=== PATIENT | female | born 1985 | race American Indian/Alaskan Native ===

== ENCOUNTER 2016-02-20 20:01 | Emergency (ER) | payer SELFPAY ==
[2016-02-20 20:07] VITALS: BP 138/88
== END 2016-02-20 21:30 | disposition left against medical advice (07) ==
LOC: ED 20:01
DX: R06.00 Dyspnea, unspecified (principal); K08.89 Other specified disorders of teeth and supporting structures; R22.0 Localized swelling, mass and lump, head; J02.9 Acute pharyngitis, unspecified; Z53.21 Procedure and treatment not carried out due to patient leaving prior to being seen by health care provider

== ENCOUNTER 2016-04-09 14:44 | Emergency (ER) | payer SELFPAY ==
[2016-04-09] MEDS ORDERED: BENADRYL IV ONE (18:01)
[2016-04-09] MEDS ORDERED: REGLAN IV ONE (18:01)
[2016-04-09] MEDS ORDERED: DECADRON IV ONE (18:01)
[2016-04-09] MEDS ORDERED: NACL 0.9% 1000 ML IV ONE (18:03)
--- NOTE | 2016-04-09 18:14 | Emergency Department Report ---
ED Headache HPI - General Chief Complaint: Headache Stated Complaint: HEAD PAIN Time Seen by Provider: 04/09/16 18:01 Source: patient - History of Present Illness Initial Comments: Patient is a 30 year old female who presents to the ED for complaints of severe headache since this morning at 10 30 AM. Relates that she woke up with 10/10 pain and relates had some epistaxis with it. Relates that intensity of pain has reduced. But she has never had lingering headaches. Denies of taking any medications for it. Patient denies any blurred vision, decreased vision, weakness, abnormal gait or dizziness at this time. Denies any other symptoms. Timing/Duration: constant Quality: moderate Head Injury Location: global Recent Head Trauma: no recent headache/trauma, occasional headaches Associated Symptoms: denies symptoms. denies: confusion, fatigue, facial pain, fever/chills, flushing, loss of consciousness, nausea/vomiting, nasal congestion , nasal drainage, seizures, stiff neck, vision changes, weakness Allergies/Adverse Reactions: Allergies No Known Allergies Allergy (Verified 04/03/15 14:11) Home Medications: Ambulatory Orders Acetaminophen/Codeine [Tylenol #3] 1 tab PO Q6H PRN #10 tab 06/27/15 Butalb/Acetamin/Caff 50-325-40 [Fioricet] 1 tab PO Q8HR PRN #20 tablet 04/09/16 ED Review of Systems ROS: Stated complaint: HEAD PAIN Other details as noted in HPI Constitutional: denies: chills, fever Eyes: denies: eye pain, eye discharge, vision change Respiratory: denies: cough, shortness of breath, wheezing Cardiovascular: denies: chest pain, palpitations Skin: denies: rash, lesions Neurological: as per HPI, headache. denies: weakness, numbness, paresthesias, confusion, abnormal gait, vertigo Psychiatric: denies: anxiety, depression ED Past Medical Hx - Past Medical History Previous Medical History?: Yes Hx Hypertension: No Hx Diabetes: No Hx Deep Vein Thrombosis: No Hx Renal Disease: No Hx Sickle Cell Disease: No Hx Seizures: No Hx Asthma: Yes (pt denies taking medication for asthma) Hx HIV: No - Surgical History Past Surgical History?: Yes Additional Surgical History: LEFT KNEE SURGERY - Social History Smoking Status: Never Smoker Substance Use Type: None - Medications Home Medications: Home Medications Medication Instructions Recorded Confirmed Last Taken Type Acetaminophen/Codeine [Tylenol #3] 1 tab PO Q6H PRN #10 tab 06/27/15 Unknown Rx Butalb/Acetamin/Caff 50325-40 1 tab PO Q8HR PRN #20 tablet 04/09/16 Unknown Rx [Fioricet] ED Physical Exam - General Limitations: No Limitations General appearance: alert, in no apparent distress - Head Head exam: Present: atraumatic, normocephalic - Eye Eye exam: Present: normal appearance, PERRL, EOMI - Respiratory Respiratory exam: Present: normal lung sounds bilaterally. Absent: respiratory distress, wheezes - Cardiovascular Cardiovascular Exam: Present: regular rate, normal rhythm. Absent: systolic murmur, diastolic murmur, rubs, gallop - Neurological Exam Neurological exam: Present: alert, oriented X3, CN II-XII intact, normal gait. Absent: motor sensory deficit - Expanded Neurological Exam Expanded Neurological exam: Absent: ataxia, expressive aphasia, tremor Patient oriented to: Present: person, place, time Speech: Present: fluid speech Cranial nerves: EOM's Intact: Normal, Nystagmus: Normal (no nystagmus noted on exam), Facial Sensation: Normal Cerebellar function: Finger to Nose: Normal, Romberg: Normal Motor strength exam: RUE: 5, LUE: 5, RLE: 5, LLE: 5 Best Eye Response (Jorge): (4) open spontaneously Best Motor Response ([place]): (6) obeys commands Best Verbal Response (Jorge): (5) oriented [place] Total: 15 - Psychiatric Psychiatric exam: Present: normal affect, normal mood. Absent: depressed, agitated, anxious, flat affect, suicidal ideation ED Course Vital Signs 04/09/16 04/09/16 15:01 20:47 Temperature 98.2 F 98.0 F Pulse Rate 96 H 73 Respiratory 18 18 Rate Blood Pressure 134/90 Blood Pressure 131/81 [Right] O2 Sat by Pulse 100 99 Oximetry ED Medical Decision Making - Medical Decision Making Patient is resting comfortably. States feeling much better with IV medications. Relates headache is gone completely. CT head negative. Will start patient on Fioricet at this time. - Differential Diagnosis migraine headaches, tension headaches, migraine with aura, cluster headache Critical care attestation.: If time is entered above; I have spent that time in minutes in the direct care of this critically ill patient, excluding procedure time. ED Disposition Clinical Impression: Migraine Qualifiers: Migraine type: unspecified Status migrainosus presence: without status migrainosus Intractability: not intractable Qualified Code(s): G43.909 - Migraine, unspecified, not intractable, without status migrainosus Disposition: DISCHARGED TO HOME OR SELFCARE Is pt being admited?: No Does the pt Need Aspirin: No Condition: Stable Instructions: Ibuprofen (By mouth), Migraine Headache (ED), Acute Headache (ED) , Cluster Headache (ED) Prescriptions: Butalb/Acetamin/Caff 50-325-40 [Fioricet] 1 tab PO Q8HR PRN #20 tablet PRN Reason: Headache Referrals: HEAD,JAVI CASTILLO MD [Primary Care Provider] - 3-5 Days Time of Disposition: 21:28
[2016-04-09 20:48] VITALS: BP 131/81
--- NOTE | 2016-04-12 18:15 | Cat Scan Report ---
FINAL REPORT EXAM: CT HEAD/BRAIN WO CON HISTORY: severe headaches, nose bleed this afternoon TECHNIQUE: CT imaging acquired through the head without intravenous contrast. Transaxial reformations are provided. PRIORS: None. FINDINGS: The ventricles, cisterns and sulci are normal. No intraparenchymal or extra-axial mass, hemorrhage, or mass effect. Boswell and white-matter differentiation is normal. Normal spherical shape of the globes. Paranasal sinuses and mastoid air cells are clear. No skull or facial fracture visualized. IMPRESSION: No acute intracranial abnormality. Consider MRI as warranted.
== END 2016-04-09 21:41 | disposition home or self-care (01) ==
LOC: ED 14:44
DX: G43.909 Migraine, unspecified, not intractable, without status migrainosus (principal); J45.909 Unspecified asthma, uncomplicated
CPT/HCPCS: 70450; 81025; 96361; 96374; 96375; 99284; J1100; J1200; J2765; J7030

== ENCOUNTER 2016-07-06 15:34 | Emergency (ER) | payer SELFPAY ==
--- NOTE | 2016-07-06 21:27 | Emergency Department Report ---
HPI - General Chief Complaint: Pain General Time Seen by Provider: 07/06/16 20:56 - HPI HPI: There is a 30-year-old female presents to ED complaining of starting her menstrual cycle today. She states she is having pain with her menstrual cycle. Patient states cycles couple of days late patient says she took several tests at home that was negative. Patient states she started cycle today but were painful. Patient denies any other symptoms no fever no nausea no vomiting no dizziness no headaches or any other problems. ED Past Medical Hx - Past Medical History Previous Medical History?: Yes Hx Hypertension: No Hx Diabetes: No Hx Deep Vein Thrombosis: No Hx Renal Disease: No Hx Sickle Cell Disease: No Hx Seizures: No Hx Asthma: Yes (pt denies taking medication for asthma) Hx HIV: No - Surgical History Past Surgical History?: Yes Additional Surgical History: LEFT KNEE SURGERY - Social History Smoking Status: Former Smoker Substance Use Type: Alcohol, Non Opiate Pain - Medications Home Medications: Home Medications Medication Instructions Recorded Confirmed Last Taken Type Acetaminophen/Codeine [Tylenol #3] 1 tab PO Q6H PRN #10 tab 06/27/15 Unknown Rx Butalb/Acetamin/Caff 50-325-40 1 tab PO Q8HR PRN #20 tablet 04/09/16 Unknown Rx [Fioricet] Ibuprofen [Motrin 800 MG tab] 800 mg PO Q8HR PRN #30 tablet 07/06/16 Unknown Rx traMADol [Ultram] 50 mg PO Q6HR PRN #20 tablet 07/06/16 Unknown Rx ED Review of Systems ROS: Stated complaint: CRAMPS/BACK/HEAD PAIN Other details as noted in HPI Constitutional: denies: chills, fever Eyes: denies: eye pain, eye discharge, vision change ENT: denies: ear pain, throat pain Respiratory: denies: cough, shortness of breath, wheezing Cardiovascular: denies: chest pain, palpitations Endocrine: no symptoms reported Gastrointestinal: denies: abdominal pain, nausea, diarrhea Genitourinary: denies: urgency, dysuria, frequency, hematuria, discharge, abnormal menses Musculoskeletal: denies: back pain, joint swelling, arthralgia Skin: denies: rash, lesions Neurological: denies: headache, weakness, paresthesias Psychiatric: denies: anxiety, depression Hematological/Lymphatic: denies: easy bleeding, easy bruising Physical Exam - Physical Exam Vital Signs: Vital Signs 07/06/16 16:17 Temperature 98.2 F Pulse Rate 77 Respiratory 16 Rate Blood Pressure 116/75 O2 Sat by Pulse 100 Oximetry Physical Exam: GENERAL: Alert and oriented x3, no apparent distress, Normal Gait, atraumatic. HEAD: Head is normocephalic and a-traumatic. NECK: Supple. Non edematous, No carotid bruits. No lymphadenopathy or thyromegaly. No C-spine tenderness LUNGS: Symetrical with respiration, No wheezing, no rales or crackles, CTAB. HEART: S1, S2 present, regular rate and rhythm without murmur, no rubs, no gallops. ABDOMEN: No organomegaly was noted,Positive bowel sounds, soft, and non- distended. . Nontender to palpation on all Quadrants, NO CVA tenderness. PSYCHIATRIC: Mood is congruent with affect, denies suicidal or homicidal ideations. SKIN: Warm and dry, No lesions, No ulceration or induration present. ED Course Vital Signs 07/06/16 16:17 Temperature 98.2 F Pulse Rate 77 Respiratory 16 Rate Blood Pressure 116/75 O2 Sat by Pulse 100 Oximetry ED Medical Decision Making - Medical Decision Making 30-year-old female presents with dysmenorrhea ED course: Patient did not receive pain medication as she is refused pain medicine in ER because she had taken Motrin earlier today. 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 Patient states she understands instructions given and will comply. Critical care attestation.: If time is entered above; I have spent that time in minutes in the direct care of this critically ill patient, excluding procedure time. ED Disposition Clinical Impression: Menstrual cramps, Dysmenorrhea Disposition: DISCHARGED TO HOME OR SELFCARE Is pt being admited?: No Does the pt Need Aspirin: No Condition: Stable Instructions: Menstruation (ED), Dysmenorrhea (ED) Prescriptions: Ibuprofen [Motrin 800 MG tab] 800 mg PO Q8HR PRN #30 tablet PRN Reason: Pain traMADol [Ultram] 50 mg PO Q6HR PRN #20 tablet PRN Reason: Pain Referrals: JAVI LUO MD [Primary Care Provider] - 3-5 Days SHIRA COVINGTON MD [Referring] - 3-5 Days GRACE BAKER MD [Referring] - 3-5 Days TIMOTEO ANGULO MD [Referring] - 3-5 Days [facility] [Outside] - 3-5 Days Forms: Accompanied Note, Work/School Release Form(ED) Time of Disposition: 21:31
[2016-07-06 22:13] VITALS: BP 117/79
== END 2016-07-06 22:09 | disposition home or self-care (01) ==
LOC: ED 15:34
DX: N94.6 Dysmenorrhea, unspecified (principal); J45.909 Unspecified asthma, uncomplicated; Z87.891 Personal history of nicotine dependence
CPT/HCPCS: 99282

== ENCOUNTER 2016-12-08 16:40 | Emergency (ER) | payer SELFPAY ==
[2016-12-08 18:26] VITALS: BP 133/77
== END 2016-12-08 19:29 | disposition left against medical advice (07) ==
LOC: ED 16:40
DX: O26.891 Other specified pregnancy related conditions, first trimester (principal); M79.1 Myalgia; M79.672 Pain in left foot; Z3A.11 11 weeks gestation of pregnancy; Z53.21 Procedure and treatment not carried out due to patient leaving prior to being seen by health care provider

== ENCOUNTER 2017-03-26 12:08 | Outpatient (CLI) | payer MEDICAID ==
[2017-03-26 12:25] VITALS: BP 119/78
== END 2017-03-26 14:16 | disposition home or self-care (01) ==
LOC: TRG 12:08
PROVIDERS: ATTEND Obstetrics & Gynecology
DX: O47.02 False labor before 37 completed weeks of gestation, second trimester (principal); Z87.891 Personal history of nicotine dependence; Z3A.25 25 weeks gestation of pregnancy
CPT/HCPCS: 59025

== ENCOUNTER 2017-05-17 07:21 | Outpatient (CLI) | payer MEDICAID ==
[2017-05-17] MEDS ORDERED: LACTATED RINGERS 500 ML IV ONE (07:48)
[2017-05-17] MEDS ORDERED: PHENERGAN PO ONE (08:30)
[2017-05-17] MEDS ORDERED: PERCOCET 5/325 PO ONE ×2 (08:30→09:25)
[2017-05-17 08:48] LABS: Hematocrit 36.5 % (30.3-42.9); Hemoglobin 12.3 gm/dl (10.1-14.3); Mean Corpuscular HGB Conc 34 % (30-34); Mean Corpuscular Hemoglobin 29 pg (28-32); Mean Corpuscular Volume 85 fl (79-97); Platelet Count 317 K/mm3 (140-440); Red Blood Count 4.29 M/mm3 (3.65-5.03); Red Cell Distribution Width 13.6 % (13.2-15.2)
[2017-05-17 08:50] LABS: Bilirubin,Urine NEG (Negative); Blood,Urine NEG (Negative); Color,Urine Straw (Yellow); Mucus,Urine FEW /HPF; Protein,Urine <15 mg/dL mg/dL (Negative); Urobilinogen,Urine < 2.0 mg/dL (<2.0); WBC,Urine < 1.0 /HPF (0.0-6.0)
[2017-05-17 08:54] LABS: RBC,Urine < 1.0 /HPF (0.0-6.0)
[2017-05-17 09:45] LABS: Alanine Aminotransferase 36 units/L (7-56); Uric Acid 4.1 mg/dL (3.5-7.6)
[2017-05-18 01:20] VITALS: BP 126/73
== END 2017-05-17 09:41 | disposition home or self-care (01) ==
LOC: TRG 07:21
PROVIDERS: ATTEND Obstetrics & Gynecology
DX: O47.03 False labor before 37 completed weeks of gestation, third trimester (principal); Z3A.33 33 weeks gestation of pregnancy; Z79.899 Other long term (current) drug therapy
CPT/HCPCS: 36415; 59025; 81001; 82565; 82962; 83615; 84450; 84460; 84550; 85027; Q0169

== ENCOUNTER 2017-05-17 21:30 | Observation (INO) | payer MEDICAID ==
[2017-05-17] MEDS ORDERED: LACTATED RINGERS 500 ML IV ONE (21:37)
[2017-05-17 22:00] LABS: Bacteria,Urine 1+ /HPF (Negative); Bilirubin,Urine NEG (Negative); Blood,Urine NEG (Negative); Color,Urine Straw (Yellow); Protein,Urine <15 mg/dL mg/dL (Negative); Urobilinogen,Urine < 2.0 mg/dL (<2.0); WBC,Urine < 1.0 /HPF (0.0-6.0)
[2017-05-17] MEDS ORDERED: DILAUDID IV ONE ×2 (22:26→23:47)
[2017-05-17] MEDS: LACTATED RINGERS 1,000 ML IV SCH (23:35)
[2017-05-18] MEDS ORDERED: BRETHINE SUB-Q ONE (02:02)
[2017-05-18] MEDS: PERCOCET 5/325 PO PRN ×4 (02:44→21:31)
[2017-05-18] MEDS: AMBIEN PO PRN ×2 (02:46→21:34)
[2017-05-18] MEDS: LACTATED RINGERS 1,000 ML IV SCH (02:52)
[2017-05-18] MEDS ORDERED: D50W (25GM) Syringe IV PRN (09:23)
--- NOTE | 2017-05-18 10:00 | History and Physical Report ---
History of Present Illness Date of examination: 05/18/17 Date of admission: 05/18/17 02:20 Chief complaint: headache x 3 days History of present illness: Pt is a 31 year old -[place] female GREG 07/05/17 at 33w1d presents with persistent headache since Tuesday05/16/17. She initially tried Fioricet x 2 doses with minimal relief as well as Percocet and Dilaudid given to the patient during a prior hospitalization yesterday morning. She reports photophobia and denies a h/o migraines. She does report nausea this morning since she has not eaten. She denies contractions, leakage of fluid or vaginal bleeding. She does reports movement. She has had care at [facility] since 7 wks complicated by gestional diabetes on insulin, genital herpes, obesity and a h/o PIH. She is GBS unknown. She has been comanaged by [facility] for her gestational diabetes. 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 Family/Genetic History: diabetes, hypertension Social history: no significant social history, other (H/o 1 child who of SIDS ) - Obstetrical History Expected Date of Delivery: 07/05/17 Actual Gestation: 33 Week(s) 1 Day(s) : 4 Para: 2 Hx # Term Pregnancies: 2 Number of Pregnancies: 0 Spontaneous Abortions: 0 Induced : 1 Number of Living Children: 1 (one child of SIDS) Medications and Allergies Allergies Allergy/AdvReac Type Severity Reaction Status Date / Time No Known Allergies Allergy Verified 04/03/15 14:11 Home Medications Medication Instructions Recorded Confirmed Last Taken Type Butalb/Acetamin/Caff 50-325-40 1 tab PO Q8HR PRN #20 tablet 04/09/16 05/17/17 Rx [Fioricet] Insulin NPH Human Isophane 10 units SUB-Q QPM 05/17/17 05/17/17 05/17/17 History [Humulin N] Insulin NPH Human Isophane 36 units SUB-Q QAMDIAB 05/17/17 05/17/17 05/17/17 History [Humulin N] Insulin Regular, Human [Humulin R] 18 units SUB-Q QAMDIAB 05/17/17 05/17/1705/01 History Insulin Regular, Human [Humulin R] 22 units SUB-Q QPM 05/17/17 05/17/17 History Pnv No.95/Ferrous Fum/Folic AC 1 tab PO QDAY 05/17/17 05/17/17 05/17/17 History [ Vitamins Tablet] Active Meds: Active Medications Acetaminophen/Butalbital/Caffeine (Fioricet) 2 tab PO Q4H PRN PRN Reason: Headache Dextrose (D50w (25gm) Syringe) 50 ml IV PRN PRN PRN Reason: Hypoglycemia Lactated Ringer's (Lactated Ringers) 1,000 mls @ 125 mls/hr IV DIRECT LUIS Last Admin: 05/18/17 02:52 Dose: 125 mls/hr Insulin Human Regular (Humulin R) 0 units SUB-Q Q6HR LUIS; Protocol Oxycodone/Acetaminophen (Percocet 5/325) 2 tab PO Q4H PRN PRN Reason: Pain, Moderate (4-6) Last Admin: 05/18/17 08:26 Dose: 2 tab Zolpidem Tartrate (Ambien) 10 mg PO QHS PRN PRN Reason: Insomnia Last Admin: 05/18/17 02:46 Dose: 10 mg Review of Systems All systems: negative Eyes: photophobia Gastrointestinal: nausea - Vital Signs Vital signs: Vital Signs Temp Resp 98.5 F 20 05/17/17 21:46 05/17/17 21:46 Temp Pulse Resp BP Pulse Ox 98.0 F 92 H 20 115/74 98 05/18/17 08:12 05/18/17 08:20 05/18/17 08:12 05/18/17 08:20 05/18/17 00:32 - Physical Exam Breasts: Positive: deferred Abdomen: Positive: soft (gravid, obese ). Negative: tenderness Uterus: Positive: enlarged (gravid ) Extremities: Positive: normal - Obstetrical FHR: auscultation normal Uterine Contraction Monitor Mode: External Uterine Contraction Pattern: Absent Uterine Tone Measurement Phase: Resting Results All other labs normal. Assessment and Plan A: IUP at 33w1d Debilitating headache minimally responsive to pain medication Gestational Diabetes- insulin dependent Asthma Genital Herpes H/o PIH H/o child who of SIDS P: Admit to antepartum service PIH panel Neurology consult Consider brain imaging per Neuro recs Supportive care
[2017-05-18] MEDS ORDERED: DEEP SEA NS PRN (10:59)
[2017-05-18] MEDS ORDERED: BENADRYL PO PRN (10:59)
[2017-05-18] MEDS ORDERED: COLACE PO PRN (10:59)
[2017-05-18] MEDS ORDERED: SUDAFED PO PRN (10:59)
[2017-05-18] MEDS ORDERED: ZOFRAN IV PRN (10:59)
[2017-05-18] MEDS ORDERED: TYLENOL PO PRN (10:59)
[2017-05-18] MEDS ORDERED: LACTATED RINGERS 1,000 ML IV SCH (11:00)
[2017-05-18] MEDS ORDERED: MAGNESIUM SULFATE 2GM/50ML 2 GM/50 ML BAG IV ONE (12:39)
--- NOTE | 2017-05-18 12:48 | Consultation ---
History of Present Illness Consult date: 05/18/17 Requesting physician: ZEUS GONZALEZ Reason for Consult: headache Chief complaint: global headache History of present illness: This 31-year-old left-handed -[place] female who is at 33 weeks gestation, developed global headaches since 2 nights ago without nausea unless she is hungry. She has had some visual dark spots with the headache but not preceding it. She has no prior history of migraines. She has been using Fioricet given previously from the hospital and was told to take 2 Tuesday night but it didn't help so she came in Tuesday morning and was given promethazine and Percocet and sent home but then returned last night and was given Dilaudid which she says did not help either. She feels pressure in her head worse lying down but also worse pain like a pulling if she sits up. Past History Past Medical History: diabetes (gestational for which she is on insulin) Social history: other (working at an [employer] (formerly [employer] denies: smoking, alcohol abuse (none now, rare prior to ), prescription drug abuse, IV drug use (some marijuana back in September. During .) Family history: hypertension (mother), other (no history of migraines or epilepsy). denies: stroke Medications and Allergies Allergies Allergy/AdvReac Type Severity Reaction Status Date / Time No Known Allergies Allergy Verified 04/03/15 14:11 Home Medications Medication Instructions Recorded Confirmed Last Taken Type Butalb/Acetamin/Caff 50-325-40 1 tab PO Q8HR PRN #20 tablet 04/09/16 05/17/17 Rx [Fioricet] Insulin NPH Human Isophane 10 units SUB-Q QPM 05/17/17 05/17/17 05/17/17 History [Humulin N] Insulin NPH Human Isophane 36 units SUB-Q QAMDIAB 05/17/17 05/17/17 05/17/17 History [Humulin N] Insulin Regular, Human [Humulin R] 18 units SUB-Q QAMDIAB 05/17/17 05/17/1705/01 History Insulin Regular, Human [Humulin R] 22 units SUB-Q QPM 05/17/17 05/17/17 History Pnv No.95/Ferrous Fum/Folic AC 1 tab PO QDAY 05/17/17 05/17/17 05/17/17 History [ Vitamins Tablet] Active Meds: Active Medications Acetaminophen (Tylenol) 650 mg PO Q4H PRN PRN Reason: Pain MILD(1-3)/Fever >100.5/OSPINA Acetaminophen/Butalbital/Caffeine (Fioricet) 2 tab PO Q4H PRN PRN Reason: Headache Dextrose (D50w (25gm) Syringe) 50 ml IV PRN PRN PRN Reason: Hypoglycemia Diphenhydramine HCl (Benadryl) 25 mg PO Q6H PRN PRN Reason: Itching Docusate Sodium (Colace) 100 mg PO Q12H PRN PRN Reason: Constipation Lactated Ringer's (Lactated Ringers) 1,000 mls @ 125 mls/hr IV DIRECT LUIS Last Admin: 05/18/17 02:52 Dose: 125 mls/hr Lactated Ringer's (Lactated Ringers) 1,000 mls @ 125 mls/hr IV DIRECT LUIS Magnesium Sulfate (Magnesium Sulfate 2gm/50ml) 2 gm in 50 mls @ 25 mls/hr IV ONCE ONE Stop: 05/18/17 14:38 Dexamethasone 12 mg/ Sodium (Chloride) 53 mls @ 100 mls/hr IV NOW NR Insulin Human Regular (Humulin R) 0 units SUB-Q Q6HR LUIS; Protocol Multivitamins/Iron/Calcium ( Vitamin) 1 each PO QDAY LUIS Ondansetron HCl (Zofran) 4 mg IV Q6H PRN PRN Reason: Nausea And Vomiting Oxycodone/Acetaminophen (Percocet 5/325) 2 tab PO Q4H PRN PRN Reason: Pain, Moderate (4-6) Last Admin: 05/18/17 08:26 Dose: 2 tab Pseudoephedrine HCl (Sudafed) 30 mg PO Q4H PRN PRN Reason: Nasal Congestion Sodium Chloride (Deep Sea) 2 spray NS Q4H PRN PRN Reason: Congestion Zolpidem Tartrate (Ambien) 10 mg PO QHS PRN PRN Reason: Insomnia Last Admin: 05/18/17 02:46 Dose: 10 mg Review of Systems All systems: negative (headaches only every now and then without nausea. Some orthostatic symptoms at least today. Unaware of any snoring. Since for about 2 hours daily but doesn't doze off other times and never sleepy driving. No memory problems.) Physical Examination - Vital Signs Vital Signs: Vital Signs Temp Resp 98.5 F 20 05/17/17 21:46 05/17/17 21:46 - Physical Exam Narrative exam: General Appearance: well developed but overweight (per estimated BMI) early 30s -[place] female lying in bed, photophobic. HEENT: atraumatic, normocephalic; no bruits, 2+ [place] without soreness or induration or enlargement, sclerae nonicteric. Oropharynx pink and moist. Neck: supple, no bruits. Heart: no murmur or extra sounds. Extremities: no clubbing, cyanosis or edema. 1+ dorsalis pedis pulses bilaterally. Neurologic Exam: Mental Status: Awake, alert, oriented X 3, speech is clear, names pen and tip of pen, and abstracts well. Names President but not Coding Auditor, serial 7's intact, no right-left confusion, gets 3 of 3 objects at 3 minutes, spells WORLD backwards correctly. Cranial Nerves: ha full, no papilledema, SVPs present, PERRLA, EOMs full without nystagmus or diplopia, facial sensation intact to pinprick and light touch, no facial weakness, Trimble is midline, palate rises symmetrically to phonation OR gags are positive, shoulder shrug is 5 X 2, tongue protrudes midline. Cerebellar: finger to nose and heel to tavares are normal. Sensory: intact to light touch, pinprick, and vibrations. Double simultaneous stimulation is intact. Motor Exam Upper Extremities: no drift or pronation, Milo intact. Director Operating Room are 5 X 2, tone is normal. No atrophy or fasciculations are noted visually. Motor Exam Lower Extremities: No leg lag, quadriceps, anterior tibials and gastrocnemius are 5 bilaterally. Milo intact. Tone is normal. No atrophy or fasciculations are noted visually. Reflexes: Palmomental and snout are negative but jaw jerk is slightly positive. Triceps, biceps and brachioradialis are 2 bilaterally. Sarah's is negative bilaterally. Knee jerks are 2+ and ankle jerks are 2 bilaterally without clonus. Toes are downgoing bilaterally to Babinski testing. Results - Laboratory Findings Abnormal Lab Findings: Abnormal Labs 05/18/17 09:47 POC Glucose 169 H Assessment and Plan Impression: 1. Tension headache, new onset 2. Plan: 1. Decadron 12 mg iv X 1 for headache, discussed with Dr. Gonzalez. 2. MgSO4 2 grams iv X 2 for headache, also discussed with Dr. Gonzalez. 3. MRI and MRA of brain noncontrast since this headache is not typical for her. 4. Calf tensing maneuvers for possible orthostasis discussed with patient. 5. Vitamin B2 (riboflavin) 400 mg bid using [employer] or [employer]AP brand (the latter via [place]) to prevent headaches, safe in as I told her. 6. Can also use Mg Citrate 125 mg gelcaps for headache prevention, 2 bid building to tid, reducing dose if loose stools, also safe in . 7. Printed out instructions for B2 and magnesium for her. 45 minutes spent with this patient including discussion with Dr. Gonzalez. Thank you for an interesting consultation on this pleasant early 30s lady.
[2017-05-18] MEDS ORDERED: DECADRON 12 MG in NACL 0.9% 50 ML IV NR (13:00)
[2017-05-18] MEDS ORDERED: DECADRON IV ONE (14:12)
[2017-05-18] MEDS: HumuLIN R SUB-Q SCH ×2 (15:55→20:41)
[2017-05-18 16:25] LABS: Amphetamine Screen,Urine PRESUMPTIVE NEGATIVE; Benzodiazepines Screen,Urine PRESUMPTIVE NEGATIVE; Cannabinoid Screen,Urine PRESUMPTIVE NEGATIVE; Cocaine Screen,Urine PRESUMPTIVE NEGATIVE; Methadone Screen,Urine PRESUMPTIVE NEGATIVE; Opiate Screen,Urine PRESUMPTIVE NEGATIVE
--- NOTE | 2017-05-18 17:15 | Magnetic Resonance Report ---
FINAL REPORT EXAM: MR BRAIN WO CON HISTORY: headache TECHNIQUE: MRI brain without contrast PRIORS: None. FINDINGS: There is normal signal throughout the brain parenchyma. No evidence for brain edema pattern or mass effect. Ventricles and sulci are within normal limits. No evidence for acute intra-axial or extra-axial hemorrhage. The pituitary is prominent size measuring 1 centimeter with a rounded appearance superiorly. No evidence for acute restriction on diffusion-weighted study. Brainstem and posterior fossa structures are unremarkable. A mucous retention cyst or polyp is noted within the inferior aspect of the left maxillary sinus IMPRESSION: Mildly enlarged pituitary gland. If there is clinical concern for pituitary adenoma pituitary protocol MRI could be performed with and without contrast Mucous retention cyst or polyp within the left maxillary sinus Otherwise negative study
--- NOTE | 2017-05-18 17:16 | Magnetic Resonance Report ---
FINAL REPORT EXAM: MR MRA/MRV HEAD WO CON HISTORY: headache MR angiogram head [id number] PRIORS: None. FINDINGS: Normal appearance of the intracranial portion of the carotid arteries. The MCA and LUANA distributions are unremarkable Distal vertebral arteries are intact. The basilar and FRAME FEEDER circulation is within normal limits No evidence for major vascular occlusion or aneurysm IMPRESSION: Normal MRA head
[2017-05-19] MEDS ORDERED: HumuLIN R SUB-Q SCH ×2 (09:00→17:00)
[2017-05-19] MEDS: LACTATED RINGERS 1,000 ML IV SCH (09:12)
[2017-05-19] MEDS: FIORICET PO PRN ×2 (09:25→15:25)
[2017-05-19] MEDS ORDERED: PRENATAL VITAMIN PO SCH (10:00)
[2017-05-19] MEDS: HumuLIN R SUB-Q SCH ×2 (10:43→15:08)
[2017-05-19] MEDS ORDERED: MAGNESIUM SULFATE 2GM/50ML 2 GM/50 ML BAG IV ONE (13:00)
--- NOTE | 2017-05-19 17:15 | Progress Note ---
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 Pt should follow up with Neurology as well. Subjective - Subjective Date of service: 05/19/17 Principal diagnosis: Headache, Gestational Diabetes, Interval history: Late entry. Pt is requesting to go home. She feels that her headache is much improved. She received steroids yesterday which has increased her blood sugars. Patient reports: no new complaints Objective - Vital Signs Vital Signs: Vital Signs - 12hr 05/19/17 05/19/17 05/19/17 05:16 05:17 05:22 Temperature Pulse Rate 89 87 101 H Respiratory Rate Blood Pressure Blood Pressure [Right] O2 Sat by Pulse 94 96 96 Oximetry 05/19/17 05/19/17 05/19/17 05:27 05:32 05:39 Temperature Pulse Rate 74 96 H Respiratory Rate Blood Pressure Blood Pressure [Right] O2 Sat by Pulse 94 95 83 L Oximetry 05/19/17 05/19/17 05/19/17 05:40 05:45 05:50 Temperature Pulse Rate 66 81 79 Respiratory Rate Blood Pressure Blood Pressure [Right] O2 Sat by Pulse 80 L 99 98 Oximetry 05/19/17 05/19/17 05/19/17 05:55 05:57 06:00 Temperature Pulse Rate 82 88 64 Respiratory Rate Blood Pressure Blood Pressure [Right] O2 Sat by Pulse 98 68 L 79 L Oximetry 05/19/17 05/19/17 05/19/17 06:02 06:15 06:20 Temperature Pulse Rate 81 96 H Respiratory Rate Blood Pressure Blood Pressure [Right] O2 Sat by Pulse 78 L 99 98 Oximetry 05/19/17 05/19/17 05/19/17 06:21 06:25 06:30 Temperature Pulse Rate 99 H 90 85 Respiratory Rate Blood Pressure Blood Pressure [Right] O2 Sat by Pulse 91 99 100 Oximetry 05/19/17 05/19/17 05/19/17 06:35 06:40 06:45 Temperature Pulse Rate 94 H 94 H 96 H Respiratory Rate Blood Pressure Blood Pressure [Right] O2 Sat by Pulse 100 98 98 Oximetry 05/19/17 05/19/17 05/19/17 06:47 06:50 06:55 Temperature Pulse Rate 34 L 89 86 Respiratory Rate Blood Pressure Blood Pressure [Right] O2 Sat by Pulse 75 L 98 98 Oximetry 05/19/17 05/19/17 05/19/17 07:00 07:05 07:10 Temperature Pulse Rate 93 H 79 84 Respiratory Rate Blood Pressure Blood Pressure [Right] O2 Sat by Pulse 97 100 99 Oximetry 05/19/17 05/19/17 05/19/17 07:15 07:20 07:25 Temperature Pulse Rate 83 86 86 Respiratory Rate Blood Pressure Blood Pressure [Right] O2 Sat by Pulse 99 99 99 Oximetry 05/19/17 05/19/17 05/19/17 07:30 07:35 07:39 Temperature Pulse Rate 93 H 89 Respiratory Rate Blood Pressure Blood Pressure [Right] O2 Sat by Pulse 100 100 43 L Oximetry 05/19/17 05/19/17 05/19/17 07:40 07:44 07:47 Temperature 99.2 F Pulse Rate 94 H 73 Respiratory 20 Rate Blood Pressure 145/70 Blood Pressure 145/70 [Right] O2 Sat by Pulse 98 99 Oximetry 05/19/17 05/19/17 05/19/17 07:48 10:48 12:23 Temperature Pulse Rate 80 88 86 Respiratory Rate Blood Pressure 98/54 Blood Pressure [Right] O2 Sat by Pulse 99 97 100 Oximetry 05/19/17 05/19/17 15:37 15:38 Temperature Pulse Rate 86 86 Respiratory Rate Blood Pressure 104/59 Blood Pressure [Right] O2 Sat by Pulse 0 L 97 Oximetry - Exam Breasts: deferred Abdomen: Present: soft (gravid, obese ) Uterus: Present: normal (gravid ) FHR: auscultation normal Uterine Contraction Monitor Mode: External Uterine Contraction Pattern: Irregular Uterine Tone Measurement Phase: Resting - Labs Labs: Abnormal Labs 05/18/17 05/18/17 05/18/17 09:47 15:49 18:06 POC Glucose 169 H 232 H Fasting Glucose Magnesium 1.50 L 05/18/17 05/19/17 05/19/17 20:05 05:33 06:07 POC Glucose 286 H 238 H Fasting Glucose 253 H Magnesium 05/19/17 05/19/17 10:36 14:58 POC Glucose 250 H 257 H Fasting Glucose Magnesium Laboratory Results - last 24 hr 05/18/17 05/18/17 05/19/17 18:06 20:05 05:33 POC Glucose 286 H 238 H Fasting Glucose Magnesium 1.50 L 05/19/17 05/19/17 05/19/17 06:07 10:36 14:58 POC Glucose 250 H 257 H Fasting Glucose 253 H Magnesium
--- NOTE | 2017-05-19 17:19 | Discharge Summary ---
Providers - Providers Date of Admission: 05/19/17 08:20 Date of discharge: 05/19/17 Attending physician: ZEUS GONZALEZ 05/18/17 10:01 Consult to Physician [CONS] Routine Comment: Consulting Provider: WILDA MCCORMICK Physician Instructions: Reason For Exam: IUP at 33 wks, severe headache; gestational diabet Primary care physician: ZEUS GONZALEZ Hospitalization Reason for admission: other (Headache ) Hospital course: Pt was admitted for severe headache that did not respond to conservative measures. During her hospitalization, she received a Neurology consult, IV steroids, and two doses of IV Magnesium. She also had an MRI of the brain that was normal. By HD#1 she was feeling much better and asked to be discharged. She will follow up in the office within the next 7 days. Condition at discharge: Stable Disposition: - TO HOME OR SELFCARE - Discharge Diagnoses (1) Headache Status: Acute Qualifiers: Headache type: unspecified Headache chronicity pattern: unspecified pattern (2) Status: Acute (3) Gestational diabetes Status: Acute (4) Obesity Status: Acute (5) Obesity (BMI 30-39.9) Status: Acute Plan - Discharge Medications Prescriptions: Butalb/Acetamin/Caff 50-325-40 [Fioricet] 1 tab PO Q6HR PRN #30 tab PRN Reason: Headache Magnesium Citrate 200 mg PO BID #120 tablet oxyCODONE /ACETAMINOPHEN [Percocet 5/325] 1 tab PO Q6HR PRN #10 tablet PRN Reason: Pain - Provider Discharge Summary Activity: routine Diet: routine Instructions: routine Additional instructions: [] Smoking cessation referral if applicable(refer to patient education folder for contact #) [] Refer to [facility] Booklet Call your doctor immediately for: * Fever > 100.5 * Heavy vaginal bleeding ( >1 pad per hour) * Severe persistent headache * Shortness of breath * Reddened, hot, painful area to leg or breast * Drainage or odor from incision. * Keep incision clean and dry at all times and follow doctor's instructions regarding bathing/showering SCHEDULE A FOLLOW UP WITH THE HIGH RISK DOCTOR WITHIN THE NEXT 7 DAYS. * - Follow up plan Follow up: ZEUS GONZALEZ MD [Primary Care Provider] - 7 Days BETITO CADET MD [Staff Physician] - 7 Days
[2017-05-19 19:15] VITALS: BP 107/66
== END 2017-05-19 20:10 | disposition home or self-care (01) ==
LOC: TRG 21:30 → LD 05-18 02:20 → INTOOBSV 05-19 08:20 → OBSVTOIN 05-19 08:20
PROVIDERS: ADMIT Obstetrics & Gynecology; ATTEND Obstetrics & Gynecology
DX: O99.353 Diseases of the nervous system complicating pregnancy, third trimester (principal); G44.209 Tension-type headache, unspecified, not intractable; G43.009 Migraine without aura, not intractable, without status migrainosus; O99.513 Diseases of the respiratory system complicating pregnancy, third trimester; J45.909 Unspecified asthma, uncomplicated; O98.313 Other infections with a predominantly sexual mode of transmission complicating pregnancy, third trimester; A60.00 Herpesviral infection of urogenital system, unspecified; O24.414 Gestational diabetes mellitus in pregnancy, insulin controlled; O99.213 Obesity complicating pregnancy, third trimester; E66.9 Obesity, unspecified; Z68.34 Body mass index [BMI] 34.0-34.9, adult; Z3A.33 33 weeks gestation of pregnancy
CPT/HCPCS: 36415; 70544; 70551; 80307; 81001; 82947; 82962; 83735; 96361; 96365; 96366; 96367; 96372; 96375; 96376; G0378; J1100; J1170; J2930; J3105; J3475; J7120; J1815

== ENCOUNTER 2017-06-07 22:33 | Outpatient (CLI) | payer MEDICAID ==
[2017-06-08] MEDS ORDERED: VISTARIL PO ONE (00:43)
--- NOTE | 2017-06-08 01:48 | Ultrasound Report ---
FINAL REPORT EXAM: US OB BPP WO NON-STRESS HISTORY: NON REASSURING HEART TONES TECHNIQUE: A limited OB sonogram was obtained for evaluation of the biophysical profile. FINDINGS: For breathing movements, a score of 2 out of 2 was obtained. For movements, a score of 2 out of 2 was obtained. For posture in tone, a score of 2 out of 2 was obtained. For qualitative amniotic fluid volume, a score of 2 out of 2 was obtained. The total score for the biophysical profile is 8 out of 8. The heart rate is 127 BPM. IMPRESSION: Biophysical profile score of 8 out of 8. The heart rate is 127 BPM.
== END 2017-06-08 01:09 | disposition home or self-care (01) ==
LOC: TRG 22:33 → LD 22:34 → TRG 22:41
PROVIDERS: ATTEND Obstetrics & Gynecology
DX: O47.03 False labor before 37 completed weeks of gestation, third trimester (principal); Z3A.36 36 weeks gestation of pregnancy
CPT/HCPCS: 59025; 76819; Q0177

== ENCOUNTER 2017-06-17 05:23 | Outpatient (CLI) | payer MEDICAID ==
[2017-06-17 05:41] VITALS: BP 138/88
[2017-06-17] MEDS ORDERED: LACTATED RINGERS 1,000 ML IV SCH (06:00)
[2017-06-17] MEDS ORDERED: ZOFRAN IV ONE (06:15)
[2017-06-17 06:35] LABS: Bilirubin,Urine NEG (Negative); Blood,Urine NEG (Negative); Color,Urine Straw (Yellow); Protein,Urine <15 mg/dL mg/dL (Negative); Urobilinogen,Urine < 2.0 mg/dL (<2.0); WBC,Urine < 1.0 /HPF (0.0-6.0)
[2017-06-17] MEDS ORDERED: VISTARIL PO NR (08:45)
== END 2017-06-17 09:39 | disposition home or self-care (01) ==
LOC: TRG 05:23
PROVIDERS: ATTEND Obstetrics & Gynecology
DX: O47.1 False labor at or after 37 completed weeks of gestation (principal); Z79.899 Other long term (current) drug therapy; Z3A.37 37 weeks gestation of pregnancy
CPT/HCPCS: 59025; 81001; 82962; 96360; J2405; Q0177

== ENCOUNTER 2017-06-20 22:28 | Inpatient (IN) | payer MEDICAID ==
[2017-06-20] MEDS ORDERED: NARCAN 0.4 MG/1 ML IV PRN (23:31)
[2017-06-20] MEDS ORDERED: MINERAL OIL PO PRN (23:31)
[2017-06-20] MEDS ORDERED: BRETHINE IVP PRN (23:31)
[2017-06-20] MEDS ORDERED: SUBLIMAZE IV PRN (23:31)
[2017-06-20] MEDS ORDERED: ePHEDrine SULFATE IV PRN (23:31)
[2017-06-20] MEDS ORDERED: BRETHINE SUB-Q PRN (23:31)
[2017-06-20] MEDS ORDERED: STADOL IV PRN (23:31)
[2017-06-20] MEDS ORDERED: XYLOCAINE 2% INFILTRATI ONE (23:31)
[2017-06-20] MEDS ORDERED: ZOFRAN IV PRN (23:31)
[2017-06-20] MEDS ORDERED: PITOCin/NS 20 UNIT/1000ML DRIP 20 UNITS/1,000 ML BAG IV SCH (23:45)
[2017-06-21] MEDS ORDERED: PITOCin/NS 30 UNIT/500ML 30 UNITS/500 ML BAG IV SCH ×2 (01:00→10:00)
[2017-06-21 02:07] LABS: Hematocrit 38.6 % (30.3-42.9); Hemoglobin 13.1 gm/dl (10.1-14.3); Mean Corpuscular HGB Conc 34 % (30-34); Mean Corpuscular Hemoglobin 28 pg (28-32); Mean Corpuscular Volume 84 fl (79-97); Platelet Count 281 K/mm3 (140-440); Red Blood Count 4.62 M/mm3 (3.65-5.03); Red Cell Distribution Width 14.5 % (13.2-15.2)
[2017-06-21] MEDS ORDERED: CERVIDIL VG ONE (02:38)
[2017-06-21] MEDS: LACTATED RINGERS 1,000 ML IV SCH ×3 (02:40→10:36)
--- NOTE | 2017-06-21 02:53 | History and Physical Report ---
History of Present Illness Date of examination: 06/21/17 Date of admission: 06/20/17 23:48 Chief complaint: contractions, decreased movement History of present illness: Pt is a 31 year old -[place]ron[place] female GREG 07/05/17 at 38w0d who presents with complaint of contractions and loss of her mucus plug. She also reports decreased movement over the last few hours. Of note, the patient was scheduled for induction at 0830am for IUGR and Gestational Diabetes. She denies vaginal bleeding or leakage of fluid. She has had care at [facility] since 7 wks complicated by gestational diabetes A2 on insulin, IUGR, genital herpes, no care from 20-34 weeks, h/o PIH and h/o SIDS of one of her children. She is GBS negative. Past History Past Medical History: asthma, migraines Past Surgical History: other (knee surgery ) [employer] History: gonorrhea (remote from this ), herpes Family/Genetic History: heart disease, hypertension Social history: no significant social history - Obstetrical History Expected Date of Delivery: 07/05/17 Actual Gestation: 38 Week(s) 0 Day(s) : 4 Para: 2 Hx # Term Pregnancies: 2 Number of Pregnancies: 0 Spontaneous Abortions: 0 Induced : 1 Number of Living Children: 1 Medications and Allergies Allergies Allergy/AdvReac Type Severity Reaction Status Date / Time No Known Allergies Allergy Verified 04/03/15 14:11 Home Medications Medication Instructions Recorded Confirmed Last Taken Type Insulin NPH Human Isophane 10 units SUB-Q QPM 05/17/17 06/21/17 06/16/17 History [Humulin N] Insulin NPH Human Isophane 42 units SUB-Q QAMDIAB 05/17/17 06/21/17 06/16/17 History [Humulin N] Insulin Regular, Human [Humulin R] 16 units SUB-Q QAMDIAB 05/17/17 06/21/1705/01 History Insulin Regular, Human [Humulin R] 26 units SUB-Q QPM 05/17/17 06/21/17 History Pnv No.95/Ferrous Fum/Folic AC 1 tab PO QDAY 05/17/17 06/21/17 06/16/17 History [ Vitamins Tablet] Magnesium Citrate 200 mg PO BID #120 tablet 05/19/17 06/21/17 06/16/17 Rx Active Meds: Active Medications Butorphanol Tartrate (Stadol) 2 mg IV Q2H PRN PRN Reason: Pain , Severe (7-10) Dinoprostone (Cervidil) 10 mg VG ONCE ONE Stop: 06/21/17 02:39 Ephedrine Sulfate (Ephedrine Sulfate) 10 mg IV Q2M PRN PRN Reason: Hypotension Fentanyl (Sublimaze) 100 mcg IV Q2H PRN PRN Reason: Labor Pain Lactated Ringer's (Lactated Ringers) 1,000 mls @ 125 mls/hr IV DIRECT LUIS Last Admin: 06/21/17 02:40 Dose: 125 mls/hr Oxytocin/Sodium Chloride (Pitocin/Ns 20 Unit/1000ml Drip) 20 units in 1,000 mls @ 125 mls/hr IV DIRECT LUIS Oxytocin/Sodium Chloride (Pitocin/Ns 30 Unit/500ml) 30 units in 500 mls @ 4 mls /hr IV TITR LUIS; Protocol Mineral Oil (Mineral Oil) 30 ml PO QHS PRN PRN Reason: Constipation Naloxone HCl (Narcan 0.4 Mg/1 Ml) 0.1 mg IV Q2MIN PRN PRN Reason: Res Rate </= 8 or 02 SAT < 92% Ondansetron HCl (Zofran) 4 mg IV Q8H PRN PRN Reason: Nausea And Vomiting Terbutaline Sulfate (Brethine) 0.25 mg SUB-Q ONCE PRN PRN Reason: Hyperstimulation/Hypertonicity Terbutaline Sulfate (Brethine) 0.25 mg IVP ONCE PRN PRN Reason: Hyperstimulation/Hypertonicity Review of Systems All systems: negative - Vital Signs Vital signs: Vital Signs Pulse Pulse Ox 88 99 06/20/17 23:36 06/20/17 23:36 Temp Pulse Resp BP Pulse Ox 97.2 F L 100 H 18 120/83 89 06/21/17 02:27 06/21/17 02:50 06/21/17 02:27 06/21/17 02:37 06/21/17 02:50 - Physical Exam Cardiovascular: Regular rate Lungs: Positive: Clear to auscultation Abdomen: Positive: soft (gravid ) Genitourinary (Female): Positive: normal external genitalia Uterus: Positive: enlarged (gravid ) Extremities: Positive: edema (trace ) - Obstetrical FHR: auscultation normal Uterine Contraction Monitor Mode: External Cervical Dilatation: 1.5 Cervical Effacement Percentage: 40 station: -3 Uterine Contraction Pattern: Irregular Uterine Tone Measurement Phase: Resting Uterine Contraction Intensity: Mild Results Result Diagrams: 06/21/17 01:55 Abnormal lab results 06/21/17 Range/Units 02:31 POC Glucose 61 L (70-105) All other labs normal. Assessment and Plan A: IUP at 38w0d IUGR GDM A2 -insulin Genital Herpes- no lesion or prodrome GBS negative H/o SIDS of one of her children Unfavorable cervix P: Admit to labor and delivery. Cervidil Accuchek q 4 hrs with sliding scale to cover Closely monitor maternal and status
[2017-06-21] MEDS ORDERED: D50W (25GM) Syringe IV PRN (02:57)
[2017-06-21] MEDS ORDERED: HumuLIN R SUB-Q SCH (03:00)
--- NOTE | 2017-06-21 07:56 | Progress Note ---
Assessment and Plan A: IUP at 37 weeks Induction day 1 for IUGR A2 diabetic Latent Labor P: Cervidil(placed @ 0300) Removed, AROM-clear Active Alexis't Pitocin Subjective - Subjective Date of service: 06/21/17 Patient reports: new complaints, movement normal, no loss of fluid, no vaginal bleeding, no contractions Objective - Vital Signs Vital Signs: Vital Signs - 12hr 06/20/17 06/20/17 06/20/17 23:36 23:41 23:42 Temperature 97.8 F Pulse Rate 88 91 H 88 Respiratory 18 Rate Blood Pressure Blood Pressure 126/84 [Left] O2 Sat by Pulse 99 98 Oximetry 06/20/17 06/20/17 06/21/17 23:46 23:51 00:26 Temperature Pulse Rate 89 96 H 101 H Respiratory Rate Blood Pressure Blood Pressure [Left] O2 Sat by Pulse 99 99 99 Oximetry 06/21/17 06/21/17 06/21/17 00:31 00:36 00:41 Temperature Pulse Rate 98 H 89 92 H Respiratory Rate Blood Pressure Blood Pressure [Left] O2 Sat by Pulse 98 97 98 Oximetry 06/21/17 06/21/17 06/21/17 00:46 00:51 00:56 Temperature Pulse Rate 95 H 87 89 Respiratory Rate Blood Pressure Blood Pressure [Left] O2 Sat by Pulse 98 98 96 Oximetry 06/21/17 06/21/17 06/21/17 01:01 01:06 01:11 Temperature Pulse Rate 95 H 96 H 97 H Respiratory Rate Blood Pressure Blood Pressure [Left] O2 Sat by Pulse 98 99 98 Oximetry 06/21/17 06/21/17 06/21/17 01:16 01:21 01:26 Temperature Pulse Rate 83 89 101 H Respiratory Rate Blood Pressure Blood Pressure [Left] O2 Sat by Pulse 100 99 100 Oximetry 06/21/17 06/21/17 06/21/17 01:31 01:36 01:41 Temperature Pulse Rate 88 103 H 95 H Respiratory Rate Blood Pressure Blood Pressure [Left] O2 Sat by Pulse 99 99 99 Oximetry 06/21/17 06/21/17 06/21/17 01:46 01:51 01:56 Temperature Pulse Rate 101 H 103 H 101 H Respiratory Rate Blood Pressure Blood Pressure [Left] O2 Sat by Pulse 100 100 91 Oximetry 06/21/17 06/21/17 06/21/17 01:57 02:01 02:02 Temperature Pulse Rate 101 H 100 H 95 H Respiratory Rate Blood Pressure Blood Pressure [Left] O2 Sat by Pulse 91 97 94 Oximetry 06/21/17 06/21/17 06/21/17 02:06 02:09 02:11 Temperature Pulse Rate 94 H 99 H 94 H Respiratory Rate Blood Pressure Blood Pressure [Left] O2 Sat by Pulse 98 92 96 Oximetry 06/21/17 06/21/17 06/21/17 02:27 02:37 02:42 Temperature 97.2 F L Pulse Rate 100 H 94 H Respiratory 18 Rate Blood Pressure 120/83 Blood Pressure [Left] O2 Sat by Pulse 99 96 Oximetry 06/21/17 06/21/17 06/21/17 02:47 02:50 02:52 Temperature Pulse Rate 103 H 100 H 98 H Respiratory Rate Blood Pressure Blood Pressure [Left] O2 Sat by Pulse 97 89 98 Oximetry 06/21/17 06/21/17 06/21/17 02:57 03:02 03:07 Temperature Pulse Rate 90 101 H 94 H Respiratory Rate Blood Pressure Blood Pressure [Left] O2 Sat by Pulse 99 99 100 Oximetry 06/21/17 06/21/17 06/21/17 03:12 03:17 03:22 Temperature Pulse Rate 95 H 83 84 Respiratory Rate Blood Pressure Blood Pressure [Left] O2 Sat by Pulse 100 100 100 Oximetry 06/21/17 06/21/17 06/21/17 03:27 03:32 03:37 Temperature Pulse Rate 88 87 83 Respiratory Rate Blood Pressure Blood Pressure [Left] O2 Sat by Pulse 100 100 100 Oximetry 06/21/17 06/21/17 06/21/17 03:42 03:47 03:52 Temperature Pulse Rate 92 H 89 89 Respiratory Rate Blood Pressure Blood Pressure [Left] O2 Sat by Pulse 100 100 100 Oximetry 06/21/17 06/21/17 06/21/17 03:57 04:02 04:07 Temperature Pulse Rate 92 H 93 H 88 Respiratory Rate Blood Pressure Blood Pressure [Left] O2 Sat by Pulse 100 100 97 Oximetry 06/21/17 06/21/17 06/21/17 04:12 04:17 04:22 Temperature Pulse Rate 89 102 H 88 Respiratory Rate Blood Pressure Blood Pressure [Left] O2 Sat by Pulse 98 99 98 Oximetry 06/21/17 06/21/1706/21/18 04:27 04:32 04:37 Temperature Pulse Rate 90 85 89 Respiratory Rate Blood Pressure Blood Pressure [Left] O2 Sat by Pulse 99 98 98 Oximetry 06/21/17 06/21/17 06/21/17 04:42 04:47 04:52 Temperature Pulse Rate 86 88 86 Respiratory Rate Blood Pressure Blood Pressure [Left] O2 Sat by Pulse 98 98 98 Oximetry 06/21/17 06/21/17 06/21/17 04:57 05:02 05:07 Temperature Pulse Rate 87 90 95 H Respiratory Rate Blood Pressure Blood Pressure [Left] O2 Sat by Pulse 99 99 97 Oximetry 06/21/17 06/21/17 06/21/17 05:12 05:17 05:22 Temperature Pulse Rate 80 84 80 Respiratory Rate Blood Pressure Blood Pressure [Left] O2 Sat by Pulse 97 98 99 Oximetry 06/21/17 06/21/17 06/21/17 05:27 05:32 05:37 Temperature Pulse Rate 85 88 99 H Respiratory Rate Blood Pressure Blood Pressure [Left] O2 Sat by Pulse 98 98 98 Oximetry 06/21/17 06/21/17 06/21/17 05:42 05:47 05:51 Temperature Pulse Rate 106 H 95 H 104 H Respiratory Rate Blood Pressure Blood Pressure [Left] O2 Sat by Pulse 100 100 70 L Oximetry 06/21/17 06/21/17 06/21/17 05:52 06:01 06:02 Temperature Pulse Rate 92 H 96 H Respiratory Rate Blood Pressure Blood Pressure [Left] O2 Sat by Pulse 100 93 94 Oximetry 06/21/17 06/21/17 06/21/17 06:06 06:11 06:16 Temperature Pulse Rate 92 H 86 82 Respiratory Rate Blood Pressure Blood Pressure [Left] O2 Sat by Pulse 100 100 100 Oximetry 06/21/17 06/21/17 06/21/17 06:21 06:26 06:31 Temperature 96.3 F L Pulse Rate 78 81 88 Respiratory 18 Rate Blood Pressure Blood Pressure 133/89 [Left] O2 Sat by Pulse 100 100 94 Oximetry 06/21/17 06/21/17 06/21/17 06:33 06:36 06:41 Temperature Pulse Rate 77 81 82 Respiratory Rate Blood Pressure 133/89 Blood Pressure [Left] O2 Sat by Pulse 100 100 Oximetry 06/21/17 06/21/1718 06:46 06:51 06:56 Temperature Pulse Rate 92 H 84 94 H Respiratory Rate Blood Pressure Blood Pressure [Left] O2 Sat by Pulse 100 100 99 Oximetry 06/21/17 06/21/17 06/21/17 07:01 07:06 07:11 Temperature Pulse Rate 85 86 90 Respiratory Rate Blood Pressure Blood Pressure [Left] O2 Sat by Pulse 99 99 98 Oximetry 06/21/17 06/21/17 06/21/17 07:16 07:21 07:26 Temperature Pulse Rate 91 H 88 82 Respiratory Rate Blood Pressure Blood Pressure [Left] O2 Sat by Pulse 100 99 100 Oximetry 06/21/17 06/21/17 06/21/17 07:28 07:33 07:34 Temperature Pulse Rate 87 73 Respiratory Rate Blood Pressure Blood Pressure [Left] O2 Sat by Pulse 84 99 90 Oximetry 06/21/17 06/21/17 06/21/17 07:38 07:43 07:50 Temperature Pulse Rate 86 91 H 90 Respiratory Rate Blood Pressure Blood Pressure [Left] O2 Sat by Pulse 100 99 99 Oximetry 06/21/17 07:55 Temperature Pulse Rate 85 Respiratory Rate Blood Pressure 133/94 Blood Pressure [Left] O2 Sat by Pulse 98 Oximetry - Exam Breasts: deferred Abdomen: Present: normal appearance Uterus: Present: normal FHR: category 1 Uterine Contraction Monitor Mode: External Cervical Dilatation: 3 Cervical Effacement Percentage: 80 station: -2 Uterine Contraction Pattern: Regular Uterine Tone Measurement Phase: Resting Uterine Contraction Intensity: Mild - Labs Labs: Abnormal Labs 06/21/17 06/21/17 02:31 05:56 POC Glucose 61 L 56 L Laboratory Results - last 24 hr 06/21/17 06/21/17 06/21/17 01:55 01:55 02:31 WBC 9.0 RBC 4.62 Hgb 13.1 Hct 38.6 MCV 84 MCH 28 MCHC 34 RDW 14.5 Plt Count 281 POC Glucose 61 L Blood Type O POSITIVE Antibody Screen Negative 06/21/17 05:56 WBC RBC Hgb Hct MCV MCH MCHC RDW Plt Count POC Glucose 56 L Blood Type Antibody Screen
[2017-06-21] MEDS ORDERED: NARCAN 2 MG/2 ML IV PRN (11:17)
[2017-06-21] MEDS ORDERED: ePHEDrine SULFATE IV PRN (11:17)
--- NOTE | 2017-06-21 11:17 | Anesthesia Consultation ---
Anesthesia Consult and Med Hx Date of service: 06/21/17 - Airway Anesthetic Teeth Evaluation: Poor ROM Head & Neck: Adequate Mental/Hyoid Distance: Adequate Mallampati Class: Class II Intubation Access Assessment: Probably Good - Pre-Operative Health Status ASA Pre-Surgery Classification: ASA2 Proposed Anesthetic Plan: Epidural, Spinal - Pulmonary Hx Asthma: Yes (aubulerol inhaler prn (last attack couple years ago)) COPD: No Hx Pneumonia: No - Cardiovascular System Hx Hypertension: No - Central Nervous System Hx Seizures: No Hx Psychiatric Problems: No - Endocrine Hx Renal Disease: No Hx End Stage Renal Disease: No Hx Hypothyroidism: No Hx Hyperthyroidism: No - Hematic Hx Anemia: No Hx Sickle Cell Disease: No - Other Systems Hx Alcohol Use: Yes (occasional) Hx Obesity: Yes (BMI 37.5)
[2017-06-21] MEDS ORDERED: fentaNYL-BUPIV 2 MCG/ML-0.125% 200 MCG/100 ML BAG EPIDURAL SCH (12:00)
[2017-06-21] MEDS ORDERED: LANSINOH TP PRN (13:38)
[2017-06-21] MEDS ORDERED: MILK OF MAGNESIA PO PRN (13:38)
[2017-06-21] MEDS ORDERED: PHENERGAN PO PRN (13:38)
[2017-06-21] MEDS ORDERED: TUCKS PAD TP PRN (13:38)
[2017-06-21] MEDS ORDERED: TYLENOL PO PRN (13:38)
[2017-06-21] MEDS ORDERED: BENADRYL PO PRN (13:38)
[2017-06-21] MEDS ORDERED: DULCOLAX PR PRN (13:38)
[2017-06-21] MEDS ORDERED: PHENERGAN PR PRN (13:38)
--- NOTE | 2017-06-21 13:38 | Procedure Note ---
OB Delivery Note - Delivery Date of Delivery: 06/21/17 (male @ 1319) Surgeon: VIKY GIBSON Estimated blood loss: <100cc - Vaginal Delivery presentation: vertex Delivery position: OA Intrapartum events: none Delivery induction: cervidil Delivery augmentation: rupture of membranes, pitocin Delivery monitor: external FHT, external uterine Route of delivery: Delivery placenta: spontaneous Delivery cord: nuchal cord (Loose NC x 1 easily reduced) Delivery laceration: none Anesthesia: none, epidural - A at 1 minute: 8 at 5 minutes: 9 Gender: Male ( viabe male, NICu present for IUGR. Stimulate to cry, lusty cry. Placed skin to skin. Cord blood collected. spont, cohen placenta, Pitocin infusing, Scant lochia. No lacerations. Mom and baby stable.)
[2017-06-21] MEDS ORDERED: SODIUM CHLORIDE FLUSH SYRINGE 10 ML IV NR (14:00)
[2017-06-21] MEDS: MOTRIN PO SCH ×2 (15:26→21:22)
[2017-06-22] MEDS: NORCO 5/325 PO PRN ×2 (00:49→10:23)
[2017-06-22 03:37] LABS: Hematocrit 35.6 % (30.3-42.9)
[2017-06-22] MEDS: MOTRIN PO SCH ×4 (05:49→20:00)
[2017-06-22] MEDS ORDERED: BOOSTRIX IM ONE (06:00)
--- NOTE | 2017-06-22 08:55 | Progress Note ---
Assessment and Plan A: PPD#1 s/p at term complicated by Gestational DM and IUGR P: Routine care. Subjective - Subjective Date of service: 06/22/17 Principal diagnosis: s/p at term, IUGR, Gestational DM Interval history: Pt doing well today. Anxious about the baby's well being Patient reports: appetite normal, voiding normally, ambulating normally Objective - Vital Signs Latest vital signs: Vital Signs Temp Pulse Resp BP BP Pulse Ox 06/22/17 00:49 20 06/22/17 00:00 98.2 F 95 H 18 140/75 06/21/17 20:30 98.2 F 91 H 18 132/84 06/21/17 15:41 78 134/74 06/21/17 15:26 83 127/77 06/21/17 15:13 98.6 F 16 06/21/17 15:11 82 126/73 06/21/17 14:56 84 135/95 06/21/17 14:41 85 121/74 06/21/17 14:26 75 126/76 06/21/17 14:11 84 133/74 06/21/17 14:00 97.8 F 16 06/21/17 13:56 77 130/94 06/21/17 13:41 87 127/83 06/21/17 13:26 93 H 124/85 06/21/17 13:24 134 H 16 100 06/21/17 13:19 85 100 06/21/17 13:14 90 100 06/21/17 13:11 100 H 139/86 06/21/17 13:09 76 100 06/21/17 13:04 78 100 06/21/17 12:59 77 100 06/21/17 12:56 95 H 136/70 06/21/17 12:53 89 100 06/21/17 12:48 87 98 06/21/17 12:43 79 99 06/21/17 12:41 75 134/71 06/21/17 12:38 80 99 06/21/17 12:33 96 H 100 06/21/17 12:28 92 H 99 06/21/17 12:26 84 128/86 06/21/17 12:23 76 100 06/21/17 12:18 82 100 06/21/17 12:13 85 99 05/08/18 12:11 80 118/86 05 12:08 81 100 06/21/17 12:03 78 99 06/21/17 11:58 84 100 05 11:56 80 123/75 92 06/21/17 11:53 84 137/90 100 06/21/17 11:52 75 135/82 06/21/17 11:51 97.3 F L 18 06/21/17 11:49 86 135/90 06/21/17 11:48 83 100 06/21/17 11:47 80 132/85 06/21/17 11:45 76 132/84 06/21/17 11:43 85 129/82 06/21/17 11:42 91 H 100 06/21/17 11:41 74 132/82 06/21/17 11:39 86 136/87 06/21/17 11:37 84 128/82 100 06/21/17 11:35 75 130/82 06/21/17 11:33 75 131/82 06/21/17 11:32 72 100 06/21/17 11:31 79 130/82 06/21/17 11:29 81 127/79 06/21/17 11:28 74 137/80 06/21/17 11:26 84 99 06/21/17 11:25 77 120/87 06/21/17 11:23 74 129/92 06/21/17 11:21 72 141/92 98 06/21/17 11:20 81 130/91 06/21/17 11:18 83 148/97 06/21/17 11:17 66 L 06/21/17 11:16 91 H 141/85 84 06/21/17 11:13 88 146/83 06/21/17 11:11 94 H 149/86 95 06/21/17 11:10 94 H 91 06/21/17 11:09 97 H 146/82 06/21/17 11:07 86 146/80 06/21/17 11:06 99 H 144/77 100 06/21/17 11:03 86 132/74 06/21/17 11:01 92 H 98 06/21/17 10:56 85 100 06/21/17 10:51 85 100 06/21/17 10:41 80 100 06/21/17 10:36 87 100 06/21/17 10:31 82 99 06/21/17 10:26 88 100 06/21/17 10:21 90 100 06/21/17 10:18 77 91 06/21/17 10:16 80 100 06/21/17 10:11 83 100 06/21/17 10:06 86 100 06/21/17 10:01 67 99 06/21/17 09:56 91 H 97 06/21/17 09:23 74 L 06/21/17 09:22 84 100 06/21/17 09:17 72 100 06/21/17 09:12 73 99 06/21/17 09:07 83 99 06/21/17 09:02 88 100 Intake and Output 06/21/17 06/22/17 06/22/17 22:59 06:59 14:59 Intake Total 240 240 Output Total 700 Balance -460 240 Intake: Oral 240 240 Output: Urine 700 Void 700 Other: Total, Intake Amount 240 240 Total, Output Amount 700 # Voids Void 1 - Exam Breasts: Present: deferred Cardiovascular: Present: Regular rate Lungs: Present: Clear to auscultation Abdomen: Present: soft (obese) Uterus: Present: fundal height below umbilicus Extremities: Present: normal - Labs Labs: Abnormal lab results 06/21/17 Range/Units 17:21 POC Glucose 186 H (70-105)
[2017-06-23] MEDS: NORCO 5/325 PO PRN ×2 (03:24→22:18)
[2017-06-23] MEDS: MOTRIN PO SCH ×2 (03:24→22:17)
--- NOTE | 2017-06-23 17:53 | Discharge Summary ---
Providers - Providers Date of Admission: 06/20/17 23:48 Date of discharge: 06/23/17 Attending physician: ZEUS GONZALEZ Primary care physician: ZEUS GONZALEZ Hospitalization Reason for admission: active labor, IUP at term Delivery: Episiotomy: none Laceration: none Other procedures: none complications: none Discharge diagnosis: IUP at term delivered baby: male Condition at discharge: Good Disposition: DC-01 TO HOME OR SELFCARE Plan - Discharge Medications Prescriptions: Ibuprofen [Motrin 600 MG tab] 600 mg PO Q6H PRN #30 tablet PRN Reason: Pain - Provider Discharge Summary Activity: routine, no sex for 6 weeks, no heavy lifting 4 weeks, no strenuous exercise Diet: routine Instructions: routine Additional instructions: [] Smoking cessation referral if applicable(refer to patient education folder for contact #) [] Refer to [facility]'s [facility] Booklet Call your doctor immediately for: * Fever > 100.5 * Heavy vaginal bleeding ( >1 pad per hour) * Severe persistent headache * Shortness of breath * Reddened, hot, painful area to leg or breast * Drainage or odor from incision. * Keep incision clean and dry at all times and follow doctor's instructions regarding bathing/showering - Follow up plan Follow up: ZEUS GONZALEZ MD [Primary Care Provider] - (RTO 4 weeks, Call office to schedule infant circumcision)
[2017-06-23 22:21] VITALS: BP 120/75
== END 2017-06-23 22:20 | disposition home or self-care (01) | DRG 774 ==
LOC: TRG 22:28 → LD 23:48 → OB 06-21 17:05
PROVIDERS: ADMIT Obstetrics & Gynecology; ATTEND Obstetrics & Gynecology
PROC: 10E0XZZ Delivery of Products of Conception, External Approach (ICD-10-PCS; principal; 2017-06-21)
PROC: 00HU33Z Insertion of Infusion Device into Spinal Canal, Percutaneous Approach (ICD-10-PCS; 2017-06-21)
PROC: 3E0R3BZ Introduction of Anesthetic Agent into Spinal Canal, Percutaneous Approach (ICD-10-PCS; 2017-06-21)
PROC: 3E0P7VZ Introduction of Hormone into Female Reproductive, Via Natural or Artificial Opening (ICD-10-PCS; 2017-06-21)
PROC: 3E0234Z Introduction of Serum, Toxoid and Vaccine into Muscle, Percutaneous Approach (ICD-10-PCS; 2017-06-22)
DX: O36.5930 Maternal care for other known or suspected poor fetal growth, third trimester, not applicable or unspecified (principal); O98.32 Other infections with a predominantly sexual mode of transmission complicating childbirth; O24.414 Gestational diabetes mellitus in pregnancy, insulin controlled; O69.81X0 Labor and delivery complicated by cord around neck, without compression, not applicable or unspecified; O75.89 Other specified complications of labor and delivery; J45.909 Unspecified asthma, uncomplicated; G43.909 Migraine, unspecified, not intractable, without status migrainosus; Z3A.38 38 weeks gestation of pregnancy; Z37.0 Single live birth; Z23 Encounter for immunization; A60.00 Herpesviral infection of urogenital system, unspecified
CPT/HCPCS: 36415; 59200; 82962; 85014; 85018; 85027; 86592; 86850; 86900; 86901; 88307; 90471; 90715; 99211; G0463; J2590; J7120

== ENCOUNTER 2017-08-20 04:13 | Emergency (ER) | payer SELFPAY ==
[2017-08-20 05:03] VITALS: BP 119/78
--- NOTE | 2017-08-20 06:30 | Emergency Department Report ---
- General Chief complaint: Rectal Pain Stated complaint: HEMORRID JUST HAD A BABY Time Seen by Provider: 08/20/17 06:09 Source: patient Mode of arrival: Ambulatory Limitations: No Limitations - History of Present Illness Initial comments: 31-year-old female presents with complaint of hemorrhoids that are itching her anus. Patient denies bloody stools fevers or chills or pus drainage from anus. She is using Preparation H with minimal relief of her pain. Patient is awake alert and oriented 3 not in acute distress. Denies any bleeding in his stool. complaint: other (hemorrhoid) Onset/Timin -: week(s) Quality: burning, aching Consistency: intermittent Worsens with: other (defecation) Treatments Prior to Arrival: OTC topical medication - Related Data Home Medications Medication Instructions Recorded Confirmed Last Taken Insulin NPH Human Isophane 10 units SUB-Q QPM 05/17/17 06/21/17 06/16/17 [Humulin N] Insulin NPH Human Isophane 42 units SUB-Q QAMDIAB 05/17/17 06/21/17 06/16/17 [Humulin N] Insulin Regular, Human [Humulin R] 16 units SUB-Q QAMDIAB 05/17/17 06/21/1705/01 Insulin Regular, Human [Humulin R] 26 units SUB-Q QPM 05/17/17 06/21/17 06/16/17 Pnv No.95/Ferrous Fum/Folic AC 1 tab PO QDAY 05/17/17 06/21/17 06/16/17 [ Vitamins Tablet] Previous Rx's Medication Instructions Recorded Last Taken Type Magnesium Citrate 200 mg PO BID #120 tablet 05/19/17 06/16/17 Rx Ibuprofen [Motrin 600 MG tab] 600 mg PO Q6H PRN #30 tablet 06/23/17 Unknown Rx Acetaminophen/Codeine [Tylenol 1 tab PO Q6H PRN #10 tab 08/20/17 Unknown Rx /Codeine # 3 tab] Docusate Sodium [Stool Softener] 100 mg PO BID PRN #1 bottle 08/20/17 Unknown Rx Hydrocortisone [Anusol-Hc] 1 applicatio RC TID PRN #1 08/20/17 Unknown Rx cream..g. Ibuprofen [Motrin] 800 mg PO Q8HR PRN #25 tablet 08/20/17 Unknown Rx Allergies Allergy/AdvReac Type Severity Reaction Status Date / Time No Known Allergies Allergy Verified 08/20/17 04:58 Abscess Boil HPI - HPI Chief Complaint: Rectal Pain Stated Complaint: HEMORRID JUST HAD A BABY Time Seen by Provider: 08/20/17 06:09 Home Medications: Home Medications Medication Instructions Recorded Confirmed Last Taken Insulin NPH Human Isophane 10 units SUB-Q QPM 05/17/17 06/21/17 06/16/17 [Humulin N] Insulin NPH Human Isophane 42 units SUB-Q QAMDIAB 05/17/17 06/21/17 06/16/17 [Humulin N] Insulin Regular, Human [Humulin R] 16 units SUB-Q QAMDIAB 05/17/17 06/21/1705/01 Insulin Regular, Human [Humulin R] 26 units SUB-Q QPM 05/17/17 06/21/17 06/16/17 Pnv No.95/Ferrous Fum/Folic AC 1 tab PO QDAY 05/17/17 06/21/17 06/16/17 [ Vitamins Tablet] Previous Rx's Medication Instructions Recorded Last Taken Type Magnesium Citrate 200 mg PO BID #120 tablet 05/19/17 06/16/17 Rx Ibuprofen [Motrin 600 MG tab] 600 mg PO Q6H PRN #30 tablet 06/23/17 Unknown Rx Acetaminophen/Codeine [Tylenol 1 tab PO Q6H PRN #10 tab 08/20/17 Unknown Rx /Codeine # 3 tab] Docusate Sodium [Stool Softener] 100 mg PO BID PRN #1 bottle 08/20/17 Unknown Rx Hydrocortisone [Anusol-Hc] 1 applicatio RC TID PRN #1 08/20/17 Unknown Rx cream..g. Ibuprofen [Motrin] 800 mg PO Q8HR PRN #25 tablet 08/20/17 Unknown Rx Allergies/Adverse Reactions: Allergies Allergy/AdvReac Type Severity Reaction Status Date / Time No Known Allergies Allergy Verified 08/20/17 04:58 ED Review of Systems ROS: Stated complaint: HEMORRID JUST HAD A BABY Other details as noted in HPI Constitutional: denies: chills, fever Eyes: denies: eye pain, eye discharge, vision change ENT: denies: ear pain, throat pain Respiratory: denies: cough, shortness of breath, wheezing Cardiovascular: denies: chest pain, palpitations Endocrine: no symptoms reported Gastrointestinal: denies: abdominal pain, nausea, diarrhea Genitourinary: denies: urgency, dysuria, discharge Musculoskeletal: denies: back pain, joint swelling, arthralgia Skin: as per HPI, pruritus. denies: rash, lesions Neurological: denies: headache, weakness, paresthesias Psychiatric: denies: anxiety, depression Hematological/Lymphatic: denies: easy bleeding, easy bruising ED Past Medical Hx - Past Medical History Hx Hypertension: No Hx Congestive Heart Failure: No Hx Diabetes: Yes (GDM) Hx Deep Vein Thrombosis: No Hx Renal Disease: No Hx Sickle Cell Disease: No Hx Seizures: No Hx Asthma: Yes (aubulerol inhaler prn (last attack couple years ago)) Hx COPD: No Hx HIV: No - Surgical History Additional Surgical History: LEFT KNEE SURGERY, Miscarriage - Social History Smoking Status: Current Every Day Smoker Substance Use Type: Alcohol - Medications Home Medications: Home Medications Medication Instructions Recorded Confirmed Last Taken Type Insulin NPH Human Isophane 10 units SUB-Q QPM 05/17/17 06/21/17 06/16/17 History [Humulin N] Insulin NPH Human Isophane 42 units SUB-Q QAMDIAB 05/17/17 06/21/17 06/16/17 History [Humulin N] Insulin Regular, Human [Humulin R] 16 units SUB-Q QAMDIAB 05/17/17 06/21/1705/01 History Insulin Regular, Human [Humulin R] 26 units SUB-Q QPM 05/17/17 06/21/17 History Pnv No.95/Ferrous Fum/Folic AC 1 tab PO QDAY 05/17/17 06/21/17 06/16/17 History [ Vitamins Tablet] Magnesium Citrate 200 mg PO BID #120 tablet 05/19/17 06/21/17 06/16/17 Rx Ibuprofen [Motrin 600 MG tab] 600 mg PO Q6H PRN #30 tablet 06/23/17 Unknown Rx Acetaminophen/Codeine [Tylenol 1 tab PO Q6H PRN #10 tab 08/20/17 Unknown Rx /Codeine # 3 tab] Docusate Sodium [Stool Softener] 100 mg PO BID PRN #1 bottle 08/20/17 Unknown Rx Hydrocortisone [Anusol-Hc] 1 applicatio RC TID PRN #1 08/20/17 Unknown Rx cream..g. Ibuprofen [Motrin] 800 mg PO Q8HR PRN #25 tablet 08/20/17 Unknown Rx ED Physical Exam - General Limitations: No Limitations General appearance: alert, in no apparent distress - Head Head exam: Present: atraumatic, normocephalic - Eye Eye exam: Present: normal appearance - ENT ENT exam: Present: mucous membranes moist - Neck Neck exam: Present: normal inspection - Respiratory Respiratory exam: Present: normal lung sounds bilaterally. Absent: respiratory distress - Cardiovascular Cardiovascular Exam: Present: regular rate, normal rhythm. Absent: systolic murmur, diastolic murmur, rubs, gallop - GI/Abdominal GI/Abdominal exam: Present: soft, normal bowel sounds - Rectal Rectal exam: Present: hemorrhoids (she has 1 grade 1 to grade 2 external hemorrhoid) - Extremities Exam Extremities exam: Present: normal inspection - Back Exam Back exam: Present: normal inspection - Neurological Exam Neurological exam: Present: alert, oriented X3 - Psychiatric Psychiatric exam: Present: normal affect, normal mood - Skin Skin exam: Present: warm, dry, intact, normal color. Absent: rash ED Course Vital Signs 08/20/17 04:58 Temperature 98.3 F Pulse Rate 97 H Respiratory 16 Rate Blood Pressure 119/78 O2 Sat by Pulse 97 Oximetry ED Medical Decision Making - Medical Decision Making A/P: External hemorrhoid 1-patient can continue Preparation H 2-follow-up with primary care 3-stool softness, Motrin 800 when necessary. Short course Tylenol 3 4- sitz baths 5- patient has no clinical signs of perirectal abscess or cellulitis on PAUL exam Critical care attestation.: If time is entered above; I have spent that time in minutes in the direct care of this critically ill patient, excluding procedure time. ED Disposition Clinical Impression: Hemorrhoids Qualifiers: Hemorrhoid type: first degree Qualified Code(s): K64.0 - First degree hemorrhoids Disposition: DC- TO HOME OR SELFCARE Is pt being admited?: No Does the pt Need Aspirin: No Condition: Stable Instructions: Hemorrhoids (ED), High Fiber Diet (ED) Prescriptions: Acetaminophen/Codeine [Tylenol /Codeine # 3 tab] 1 tab PO Q6H PRN #10 tab PRN Reason: Pain , Severe (7-10) Docusate Sodium [Stool Softener] 100 mg PO BID PRN #1 bottle PRN Reason: Constipation Hydrocortisone [Anusol-Hc] 1 applicatio RC TID PRN #1 cream..g. PRN Reason: Alcohol Withdrawal Ibuprofen [Motrin] 800 mg PO Q8HR PRN #25 tablet PRN Reason: Pain , Severe (7-10) Referrals: [facility] [Provider Group] - 3-5 Days Forms: Work/School Release Form(ED), Accompanied Note Time of Disposition: 06:38
[2017-08-20] MEDS ORDERED: MOTRIN PO ONE (06:41)
== END 2017-08-20 06:50 | disposition home or self-care (01) ==
LOC: ED 04:13
DX: K64.0 First degree hemorrhoids (principal); J45.909 Unspecified asthma, uncomplicated; F17.200 Nicotine dependence, unspecified, uncomplicated; E11.9 Type 2 diabetes mellitus without complications; Z79.4 Long term (current) use of insulin
CPT/HCPCS: 99282

== ENCOUNTER 2018-09-14 19:48 | Emergency (ER) | payer MEDICAID ==
--- NOTE | 2018-09-14 20:14 | Emergency Department Report ---
Blank Doc - Documentation Documentation: This is a 32-year-old female that pelvic pain. Denies any vaginal bleeding. Staed is about 18 weeks . This initial assessment/diagnostic orders/clinical plan/treatment(s) is/are subject to change based on patient's health status, clinical progression and re-assessment by fellow clinical providers in the ED. Further treatment and workup at subsequent clinical providers discretion. Patient/guardians urged not to elope from the ED as their condition may be serious if not clinically assessed and managed. Initial orders include: 1- Patient sent to [facility] for further evaluation and treatment 2- labs 3- UA
[2018-09-14 20:33] LABS: Basophils # (Auto) 0.1 K/mm3 (0.0-0.1); Basophils % (Auto) 0.8 % (0.0-1.8); Eosinophils # (Auto) 0.1 K/mm3 (0.0-0.4); Eosinophils % (Auto) 1.3 % (0.0-4.3); Lymphocytes # (Auto) 2.4 K/mm3 (1.2-5.4); Lymphocytes % (Auto) 31.2 % (13.4-35.0); Mean Corpuscular HGB Conc 34 % (30-34); Mean Corpuscular Volume 88 fl (79-97); Monocytes # (Auto) 0.4 K/mm3 (0.0-0.8); Monocytes % (Auto) 5.8 % (0.0-7.3); Platelet Count 298 K/mm3 (140-440); Red Blood Count 3.98 M/mm3 (3.65-5.03); Red Cell Distribution Width 13.1 % (13.2-15.2)
[2018-09-14 20:55] LABS: Alanine Aminotransferase 33 units/L (7-56); Albumin 3.6 g/dL (3.9-5); BUN/Creatinine Ratio 15; Blood Urea Nitrogen 9 mg/dL (7-17); Hemolysis Index 16
[2018-09-14] MEDS ORDERED: NACL 0.9% 1000 ML 1,000 ML IV ONE (21:28)
[2018-09-14] MEDS ORDERED: TYLENOL PO ONE (21:28)
[2018-09-14] MEDS ORDERED: ZOFRAN IV ONE (21:28)
[2018-09-14 21:43] LABS: Bilirubin,Urine NEG (Negative); Blood,Urine NEG (Negative); Color,Urine Yellow (Yellow); Mucus,Urine FEW /HPF; Protein,Urine <15 mg/dL mg/dL (Negative); Urobilinogen,Urine < 2.0 mg/dL (<2.0); WBC,Urine < 1.0 /HPF (0.0-6.0)
--- NOTE | 2018-09-14 23:01 | Ultrasound Report ---
US OB >= 14 weeks Fetus INDICATION / CLINICAL INFORMATION: Abd pain pos preg. COMPARISON: None available. FINDINGS: A single live fetus of approximately 17 weeks 0 days gestational age is seen in transverse position t o the maternal left. A normal amount of amniotic fluid is present. The placenta is posterior, grade 0 and free of the os. heart rate is 153. weight is 173 g BPD is 3.7 equaling 17 weeks 2 days gestational age Head circumference is 13.5 equals 17 weeks 0 days gestational age Abdominal circumference is 11.1 equals 17 weeks 0 days gestational age Femur length is 2.3 in calling 16 weeks 5 days gestational age It is too early for a anatomical survey IMPRESSION: Single live fetus of approximately 17 weeks 0 days gestational age in transverse position to the mate rnal left. A normal amount of amniotic fluid is present. heart rate is 153 and estimated birthweight is 173. Cervical length is 3.3 cm Signer Name: Vinayak Jimenez MD FACAriadne Signed: 09/14/2018 10:56 PM Workstation Name: [id number]
--- NOTE | 2018-09-14 23:37 | Emergency Department Report ---
ED Abdominal Pain HPI - General Chief Complaint: Abdominal Pain Stated Complaint: 18 WKS CRAMPING DIZZINESS Time Seen by Provider: 09/14/18 20:13 Source: patient, family Mode of arrival: Ambulatory Limitations: No Limitations - History of Present Illness Initial Comments: pt is a 32 y/o aaf currently 18 weeks P5, G3, A1, with DMII taking regular insulin 16 units am and 26 units in pm , who presents for abd pain and cramping x 1 days pt denies fever or chills no vaginal bleeding , pt has OBGYN but wanted to check on . MD Complaint: abdominal pain Onset/Timin -: days(s) Location: LLQ, RLQ Radiation: LLQ, RLQ Migration to: LLQ, RLQ Severity scale (0 -10): 8 Quality: cramping Consistency: intermittent Improves With: nothing Worsens With: nothing Associated Symptoms: nausea. denies: vomiting, diarrhea, fever, chills, constipation, dysuria, hematemesis, hematochezia, melena, hematuria, syncope - Related Data LMP Date: 04/24/18 Home Medications Medication Instructions Recorded Confirmed Last Taken Insulin NPH Human Isophane 10 units SUB-Q QPM 05/17/17 06/21/17 06/16/17 [Humulin N] Insulin NPH Human Isophane 42 units SUB-Q QAMDIAB 05/17/17 06/21/17 06/16/17 [Humulin N] Insulin Regular, Human [Humulin R] 16 units SUB-Q QAMDIAB 05/17/17 06/21/17 Insulin Regular, Human [Humulin R] 26 units SUB-Q QPM 05/17/17 06/21/17 06/16/17 Pnv No.95/Ferrous Fum/Folic AC 1 tab PO QDAY 05/17/17 06/21/17 06/16/17 [ Vitamins Tablet] Previous Rx's Medication Instructions Recorded Last Taken Type Magnesium Citrate 200 mg PO BID #120 tablet 05/19/17 06/16/17 Rx Ibuprofen [Motrin 600 MG tab] 600 mg PO Q6H PRN #30 tablet 06/23/17 Unknown Rx Acetaminophen/Codeine [Tylenol 1 tab PO Q6H PRN #10 tab 08/20/17 Unknown Rx /Codeine # 3 tab] Docusate Sodium [Stool Softener] 100 mg PO BID PRN #1 bottle 08/20/17 Unknown Rx Hydrocortisone [Anusol-Hc] 1 applicatio RC TID PRN #1 08/20/17 Unknown Rx cream..g. Ibuprofen [Motrin] 800 mg PO Q8HR PRN #25 tablet 08/20/17 Unknown Rx Acetaminophen [Acetaminophen TAB] 650 mg PO Q6HR PRN #30 tablet 09/14/18 Unknown Rx Ondansetron [Zofran Odt] 4 mg PO Q8HR PRN #20 tab.rapdis 09/14/18 Unknown Rx Allergies Allergy/AdvReac Type Severity Reaction Status Date / Time No Known Allergies Allergy Verified 08/20/17 04:58 ED Review of Systems ROS: Stated complaint: 18 WKS CRAMPING DIZZINESS Other details as noted in HPI Constitutional: denies: chills, fever Eyes: denies: eye pain, eye discharge, vision change ENT: denies: ear pain, throat pain Respiratory: denies: cough, shortness of breath, wheezing Cardiovascular: denies: chest pain, palpitations Endocrine: no symptoms reported Gastrointestinal: abdominal pain, nausea. denies: vomiting, diarrhea, constipation, melena Genitourinary: denies: urgency, dysuria, frequency, hematuria, discharge, abnormal menses, dyspareunia Musculoskeletal: denies: back pain, joint swelling, arthralgia Skin: denies: rash, lesions Neurological: denies: headache, weakness, paresthesias Psychiatric: denies: anxiety, depression Hematological/Lymphatic: denies: easy bleeding, easy bruising ED Past Medical Hx - Past Medical History Previous Medical History?: Yes Hx Hypertension: No Hx Congestive Heart Failure: No Hx Diabetes: Yes (GDM) Hx Deep Vein Thrombosis: No Hx Renal Disease: No Hx Sickle Cell Disease: No Hx Seizures: No Hx Asthma: Yes (aubulerol inhaler prn (last attack couple years ago)) Hx COPD: No Hx HIV: No - Surgical History Past Surgical History?: Yes Additional Surgical History: LEFT KNEE SURGERY, Miscarriage - Social History Smoking Status: Never Smoker Substance Use Type: None - Medications Home Medications: Home Medications Medication Instructions Recorded Confirmed Last Taken Type Insulin NPH Human Isophane 10 units SUB-Q QPM 05/17/17 06/21/17 06/16/17 History [Humulin N] Insulin NPH Human Isophane 42 units SUB-Q QAMDIAB 05/17/17 06/21/17 06/16/17 History [Humulin N] Insulin Regular, Human [Humulin R] 16 units SUB-Q QAMDIAB 05/17/17 06/21/17 06/16/17 History Insulin Regular, Human [Humulin R] 26 units SUB-Q QPM 05/17/17 06/21/17 06/16/17 History Pnv No.95/Ferrous Fum/Folic AC 1 tab PO QDAY 05/17/17 06/21/17 06/16/17 History [ Vitamins Tablet] Magnesium Citrate 200 mg PO BID #120 tablet 05/19/17 06/21/17 06/16/17 Rx Ibuprofen [Motrin 600 MG tab] 600 mg PO Q6H PRN #30 tablet 06/23/17 Unknown Rx Acetaminophen/Codeine [Tylenol 1 tab PO Q6H PRN #10 tab 08/20/17 Unknown Rx /Codeine # 3 tab] Docusate Sodium [Stool Softener] 100 mg PO BID PRN #1 bottle 08/20/17 Unknown Rx Hydrocortisone [Anusol-Hc] 1 applicatio RC TID PRN #1 08/20/17 Unknown Rx cream..g. Ibuprofen [Motrin] 800 mg PO Q8HR PRN #25 tablet 08/20/17 Unknown Rx Acetaminophen [Acetaminophen TAB] 650 mg PO Q6HR PRN #30 tablet 09/14/18 Unknown Rx Ondansetron [Zofran Odt] 4 mg PO Q8HR PRN #20 tab.rapdis 09/14/18 Unknown Rx ED Physical Exam - General Limitations: No Limitations General appearance: alert, in no apparent distress - Head Head exam: Present: atraumatic, normocephalic - Eye Eye exam: Present: normal appearance, PERRL, EOMI Pupils: Present: normal accommodation - ENT ENT exam: Present: normal orophraynx, mucous membranes moist, TM's normal bilaterally, normal external ear exam - Neck Neck exam: Present: normal inspection, full ROM. Absent: tenderness, lymphadenopathy, thyromegaly - Respiratory Respiratory exam: Present: normal lung sounds bilaterally. Absent: respiratory distress, wheezes, stridor, chest wall tenderness - Cardiovascular Cardiovascular Exam: Present: regular rate, normal rhythm, normal heart sounds. Absent: systolic murmur, diastolic murmur, rubs, gallop - GI/Abdominal GI/Abdominal exam: Present: soft, normal bowel sounds. Absent: distended, tenderness, guarding, rebound, rigid, bruit, hernia - Rectal Rectal exam: Present: deferred - Extremities Exam Extremities exam: Present: normal inspection, full ROM, normal capillary refill. Absent: tenderness, pedal edema, joint swelling, calf tenderness - Back Exam Back exam: Present: normal inspection, full ROM. Absent: tenderness, CVA tenderness (R), CVA tenderness (L), muscle spasm, paraspinal tenderness, vertebral tenderness, rash noted - Neurological Exam Neurological exam: Present: alert, oriented X3, CN II-XII intact, normal gait, reflexes normal. Absent: motor sensory deficit - Psychiatric Psychiatric exam: Present: normal affect, normal mood - Skin Skin exam: Present: warm, dry, intact, normal color. Absent: rash ED Course Vital Signs 09/14/18 20:12 Temperature 98.5 F Pulse Rate 91 H Respiratory 16 Rate Blood Pressure 134/80 O2 Sat by Pulse 100 Oximetry ED Medical Decision Making - Lab Data Result diagrams: 09/14/18 20:18 09/14/18 20:18 - Radiology Data Radiology results: report reviewed, image reviewed Ordering Physician: IMTIAZ DAMON NP Date of Service: 09/14/18 Procedure(s): US OB >= 14 weeks Fetus Accession Number(s): [id number] cc: IMTIAZ DAMON NP OB >= 14 weeks Fetus INDICATION / CLINICAL INFORMATION: Abd pain pos preg. COMPARISON: None available. FINDINGS: A single live fetus of approximately 17 weeks 0 days gestational age is seen in transverse position to the maternal left. A normal amount of amniotic fluid is present. The placenta is posterior, grade 0 and free of the os. heart rate is 153. weight is 173 g BPD is 3.7 equaling 17 weeks 2 days gestational age Head circumference is 13.5 equals 17 weeks 0 days gestational age Abdominal circumference is 11.1 equals 17 weeks 0 days gestational age Femur length is 2.3 in calling 16 weeks 5 days gestational age It is too early for a anatomical survey IMPRESSION: Single live fetus of approximately 17 weeks 0 days gestational age in transverse position to the maternal left. A normal amount of amniotic fluid is present. heart rate is 153 and estimated birthweight is 173. Cervical length is 3.3 cm Signer Name: Vinayak Jimenez MD FACR Signed: 09/14/2018 10:56 PM Workstation Name: [id number] Transcribed By: MS Dictated By: Vinayak Jimenez MD Electronically Authenticated By: Vinayak Jimenez MD Signed Date/Time: 09/14/182255 DD/ 53 TD/TT: - Medical Decision Making US Single IUP 17 wks and 2 days, FHR 153 bpm, Labs noted for Na:134, K: 3.4, CO2: 19, glucose: 276 , UA: noted , HCG Quant: [id number] symptoms improved with NS 1000cc given in ed pt has insulin in her possession will take same upon arrival to home, follow up with OBGYN tomorrow, pt verbalized agreement and understanding of same. Critical care attestation.: If time is entered above; I have spent that time in minutes in the direct care of this critically ill patient, excluding procedure time. ED Disposition Clinical Impression: Abdominal pain during intrauterine Disposition: DC-01 TO HOME OR SELFCARE Is pt being admited?: No Does the pt Need Aspirin: No Condition: Stable Instructions: Abdominal Pain in (ED) Prescriptions: Acetaminophen [Acetaminophen TAB] 650 mg PO Q6HR PRN #30 tablet PRN Reason: Pain Ondansetron [Zofran Odt] 4 mg PO Q8HR PRN #20 tab.rapdis PRN Reason: Nausea And Vomiting Referrals: [facility] [Other] - 3-5 Days FARIDA ORELLANA MD [Staff Physician] - 3-5 Days Forms: Work/School Release Form(ED) Time of Disposition: 23:51
[2018-09-15 00:24] VITALS: BP 126/78
== END 2018-09-15 00:15 | disposition home or self-care (01) ==
LOC: ED 19:48
DX: O26.892 Other specified pregnancy related conditions, second trimester (principal); R42 Dizziness and giddiness; R10.2 Pelvic and perineal pain; O24.419 Gestational diabetes mellitus in pregnancy, unspecified control; O99.512 Diseases of the respiratory system complicating pregnancy, second trimester; J45.909 Unspecified asthma, uncomplicated; Z98.890 Other specified postprocedural states; Z79.899 Other long term (current) drug therapy; Z3A.17 17 weeks gestation of pregnancy
CPT/HCPCS: 36415; 76805; 80053; 81001; 84702; 85025; 96361; 96374; 99284; J2405; J7030

== ENCOUNTER 2018-11-17 17:19 | Emergency (ER) | payer MEDICAID ==
[2018-11-17] MEDS ORDERED: TYLENOL ONE (18:38)
[2018-11-17] MEDS ORDERED: TYLENOL PO ONE (18:39)
[2018-11-17] MEDS ORDERED: LACTATED RINGERS 500 ML IV SCH (19:00)
[2018-11-17 19:16] LABS: Hematocrit 40.2 % (30.3-42.9); Hemoglobin 13.5 gm/dl (10.1-14.3); Mean Corpuscular HGB Conc 34 % (30-34); Mean Corpuscular Volume 87 fl (79-97); Platelet Count 301 K/mm3 (140-440); Red Blood Count 4.63 M/mm3 (3.65-5.03); Red Cell Distribution Width 13.1 % (13.2-15.2)
--- NOTE | 2018-11-17 20:58 | Event Note ---
ED Screening Note ED Screening Note: states she has a bump to her left elbow has pain to the lump 6 1/2 months tetanus immunization UTD states she believes she got bit by something, has been scratching PMHx gestational DM no allergies to meds
--- NOTE | 2018-11-17 21:01 | Emergency Department Report ---
- General Chief complaint: Extremity Injury, Upper Time Seen by Provider: 11/17/18 20:53 Source: patient Mode of arrival: Ambulatory Limitations: No Limitations - History of Present Illness Initial comments: pt is a 33 yo female who states she has a bump to her right elbow began yesterday. pt states that she has pain to the lump. pt states she is currently 6 1/2 months . pt states that tetanus immunization UTD. she states she believes she got bit by something, has been scratching to the right forearm. PMHx gestational DM. no allergies to meds. - Related Data Home Medications Medication Instructions Recorded Confirmed Last Taken Insulin NPH Human Isophane 10 units SUB-Q QPM 05/17/17 06/21/17 06/16/17 [Humulin N] Insulin NPH Human Isophane 42 units SUB-Q QAMDIAB 05/17/17 06/21/17 06/16/17 [Humulin N] Insulin Regular, Human [Humulin R] 16 units SUB-Q QAMDIAB 05/17/17 06/21/17 06/16/17 Insulin Regular, Human [Humulin R] 26 units SUB-Q QPM 05/17/17 06/21/17 06/16/17 Pnv No.95/Ferrous Fum/Folic AC 1 tab PO QDAY 05/17/17 06/21/17 06/16/17 [ Vitamins Tablet] Previous Rx's Medication Instructions Recorded Last Taken Type Magnesium Citrate 200 mg PO BID #120 tablet 05/19/17 06/16/17 Rx Ibuprofen [Motrin 600 MG tab] 600 mg PO Q6H PRN #30 tablet 06/23/17 Unknown Rx Acetaminophen/Codeine [Tylenol 1 tab PO Q6H PRN #10 tab 08/20/17 Unknown Rx /Codeine # 3 tab] Docusate Sodium [Stool Softener] 100 mg PO BID PRN #1 bottle 08/20/17 Unknown Rx Hydrocortisone [Anusol-Hc] 1 applicatio RC TID PRN #1 08/20/17 Unknown Rx cream..g. Ibuprofen [Motrin] 800 mg PO Q8HR PRN #25 tablet 08/20/17 Unknown Rx Acetaminophen [Acetaminophen TAB] 650 mg PO Q6HR PRN #30 tablet 09/14/18 Unknown Rx Ondansetron [Zofran Odt] 4 mg PO Q8HR PRN #20 tab.rapdis 09/14/18 Unknown Rx Clindamycin [Clindamycin CAP] 450 mg PO TID 7 Days #63 capsule 11/17/18 Unknown Rx Allergies Allergy/AdvReac Type Severity Reaction Status Date / Time No Known Allergies Allergy Verified 08/20/17 04:58 Abscess Boil HPI - HPI Chief Complaint: Extremity Injury, Upper Time Seen by Provider: 11/17/18 20:53 Home Medications: Home Medications Medication Instructions Recorded Confirmed Last Taken Insulin NPH Human Isophane 10 units SUB-Q QPM 05/17/17 06/21/17 06/16/17 [Humulin N] Insulin NPH Human Isophane 42 units SUB-Q QAMDIAB 05/17/17 06/21/17 06/16/17 [Humulin N] Insulin Regular, Human [Humulin R] 16 units SUB-Q QAMDIAB 05/17/17 06/21/17 06/16/17 Insulin Regular, Human [Humulin R] 26 units SUB-Q QPM 05/17/17 06/21/17 06/16/17 Pnv No.95/Ferrous Fum/Folic AC 1 tab PO QDAY 05/17/17 06/21/17 06/16/17 [ Vitamins Tablet] Previous Rx's Medication Instructions Recorded Last Taken Type Magnesium Citrate 200 mg PO BID #120 tablet 05/19/17 06/16/17 Rx Ibuprofen [Motrin 600 MG tab] 600 mg PO Q6H PRN #30 tablet 06/23/17 Unknown Rx Acetaminophen/Codeine [Tylenol 1 tab PO Q6H PRN #10 tab 08/20/17 Unknown Rx /Codeine # 3 tab] Docusate Sodium [Stool Softener] 100 mg PO BID PRN #1 bottle 08/20/17 Unknown Rx Hydrocortisone [Anusol-Hc] 1 applicatio RC TID PRN #1 08/20/17 Unknown Rx cream..g. Ibuprofen [Motrin] 800 mg PO Q8HR PRN #25 tablet 08/20/17 Unknown Rx Acetaminophen [Acetaminophen TAB] 650 mg PO Q6HR PRN #30 tablet 09/14/18 Unknown Rx Ondansetron [Zofran Odt] 4 mg PO Q8HR PRN #20 tab.rapdis 09/14/18 Unknown Rx Clindamycin [Clindamycin CAP] 450 mg PO TID 7 Days #63 capsule 11/17/18 Unknown Rx Allergies/Adverse Reactions: Allergies Allergy/AdvReac Type Severity Reaction Status Date / Time No Known Allergies Allergy Verified 08/20/17 04:58 ED Review of Systems ROS: Stated complaint: Other details as noted in HPI Comment: All other systems reviewed and negative ED Past Medical Hx - Past Medical History Previous Medical History?: Yes Hx Hypertension: No Hx Congestive Heart Failure: No Hx Diabetes: Yes (GDM) Hx Deep Vein Thrombosis: No Hx Renal Disease: No Hx Sickle Cell Disease: No Hx Seizures: No Hx Asthma: Yes (aubulerol inhaler prn (last attack couple years ago)) Hx COPD: No Hx HIV: No - Surgical History Past Surgical History?: Yes Additional Surgical History: LEFT KNEE SURGERY, Miscarriage - Social History Smoking Status: Never Smoker Substance Use Type: None - Medications Home Medications: Home Medications Medication Instructions Recorded Confirmed Last Taken Type Insulin NPH Human Isophane 10 units SUB-Q QPM 05/17/17 06/21/17 06/16/17 History [Humulin N] Insulin NPH Human Isophane 42 units SUB-Q QAMDIAB 05/17/17 06/21/17 06/16/17 History [Humulin N] Insulin Regular, Human [Humulin R] 16 units SUB-Q QAMDIAB 05/17/17 06/21/17 06/16/17 History Insulin Regular, Human [Humulin R] 26 units SUB-Q QPM 05/17/17 06/21/17 06/16/17 History Pnv No.95/Ferrous Fum/Folic AC 1 tab PO QDAY 05/17/17 06/21/17 06/16/17 History [ Vitamins Tablet] Magnesium Citrate 200 mg PO BID #120 tablet 05/19/17 06/21/17 06/16/17 Rx Ibuprofen [Motrin 600 MG tab] 600 mg PO Q6H PRN #30 tablet 06/23/17 Unknown Rx Acetaminophen/Codeine [Tylenol 1 tab PO Q6H PRN #10 tab 08/20/17 Unknown Rx /Codeine # 3 tab] Docusate Sodium [Stool Softener] 100 mg PO BID PRN #1 bottle 08/20/17 Unknown Rx Hydrocortisone [Anusol-Hc] 1 applicatio RC TID PRN #1 08/20/17 Unknown Rx cream..g. Ibuprofen [Motrin] 800 mg PO Q8HR PRN #25 tablet 08/20/17 Unknown Rx Acetaminophen [Acetaminophen TAB] 650 mg PO Q6HR PRN #30 tablet 09/14/18 Unknown Rx Ondansetron [Zofran Odt] 4 mg PO Q8HR PRN #20 tab.rapdis 09/14/18 Unknown Rx Clindamycin [Clindamycin CAP] 450 mg PO TID 7 Days #63 capsule 11/17/18 Unknown Rx ED Physical Exam - General Limitations: No Limitations General appearance: alert, in no apparent distress - Head Head exam: Present: atraumatic, normocephalic - Eye Eye exam: Present: normal appearance - ENT ENT exam: Present: mucous membranes moist - Neurological Exam Neurological exam: Present: alert, oriented X3 - Psychiatric Psychiatric exam: Present: normal affect, normal mood - Skin Skin exam: Present: warm, dry, other (small area of induration to the just distal to the right elbow, small amount of erythema, appears to have small insect bit in the center, no obvious fluctuance) ED Course Vital Signs 11/17/18 11/17/18 11/17/18 17:36 17:44 18:08 Temperature 98.2 F Pulse Rate 76 85 Respiratory 16 Rate Blood Pressure 139/72 129/74 Blood Pressure [Left] O2 Sat by Pulse Oximetry 11/17/18 11/17/18 20:37 21:33 Temperature 97.9 F Pulse Rate 63 86 Respiratory 16 Rate Blood Pressure 125/75 Blood Pressure 125/83 [Left] O2 Sat by Pulse 100 Oximetry ED Medical Decision Making - Lab Data Result diagrams: 11/17/18 18:57 - Medical Decision Making pt is a 33 yo female who states she has a bump to her right elbow began yester day. pt states that she has pain to the lump. pt states she is currently 6 1/2 months . pt states that tetanus immunization UTD. she states she believes she got bit by something, has been scratching to the right forearm. PMHx gestational DM. no allergies to meds. VSS. on exam: small area of induration to the just distal to the right elbow, small amount of erythema, appears to have small insect bit in the center, no obvious fluctuance. appears to have early cellulitis. no abscess at this time. given prescription for clindamycin. advised pt to please take medication as prescribed to completion. drink plenty of water. please have reexamined in approximately 3 days. return to the emergency room immediately for any new or worsening symptoms or if worsening signs of infection including but not limited to increasing swelling, increased redness, increasing warmth, fever, chills, etc. may need to have incision and drainage procedure in the emergency room if worsening despite antibiotics. Critical care attestation.: If time is entered above; I have spent that time in minutes in the direct care of this critically ill patient, excluding procedure time. ED Disposition Clinical Impression: Cellulitis Qualifiers: Site of cellulitis: extremity Site of cellulitis of extremity: upper extremity Laterality: right Qualified Code(s): L03.113 - Cellulitis of right upper limb Insect bite Qualifiers: Encounter type: initial encounter Site of insect bite: forearm Laterality: right Qualified Code(s): S50.861A - Insect bite (nonvenomous) of right forearm, initial encounter Disposition: TO HOME OR SELFCARE Is pt being admited?: No Does the pt Need Aspirin: No Condition: Stable Instructions: Cellulitis (ED), Insect Bite or Sting (ED) Additional Instructions: please take medication as prescribed to completion. drink plenty of water. p alejandra have reexamined in approximately 3 days. return to the emergency room immediately for any new or worsening symptoms or if worsening signs of infection including but not limited to increasing swelling, increased redness, increasing warmth, fever, chills, etc. may need to have incision and drainage procedure in the emergency room if worsening despite antibiotics. Prescriptions: Clindamycin [Clindamycin CAP] 450 mg PO TID 7 Days #63 capsule Referrals: YOKASTA KATZ MD [Primary Care Provider] - your, primary care doctor [Other] - 3-5 Days Forms: Work/School Release Form(ED), [facility] Discharge Summary Time of Disposition: 21:09 Print Language: CYMRO
[2018-11-17 21:35] VITALS: BP 125/75
--- NOTE | 2018-11-17 22:44 | Ultrasound Report ---
ULTRASOUND OBSTETRIC INDICATION / CLINICAL INFORMATION: Assess status. Clinical Gestational Age (GA): Uncertain LMP TECHNIQUE: Transabdominal. COMPARISON: Obstetrical ultrasound 09/14/2018 FINDINGS: There is a single intrauterine . Biparietal Diameter = 6.4 cm = 26 weeks, 0 day(s). Head Circumference = 23.2 cm = 25 weeks, 2 day(s). Abdominal Circumference = 21.3 cm = 25 weeks, 6 day(s). Femur Length = 4.8 cm = 25 weeks, 6 day(s). Average Ultrasound Age (AUA) = 25 weeks, 5 day(s). Heart Rate: 149 beats per minute. Estimated Weight in grams (if calculated): 854 Position: cephalic. Cervix: closed. Length in cm (if measured): 3.3 Placenta: posterior and free of the os. Amniotic Fluid Volume: normal Amniotic Fluid Index (ANA MARIA) in cm (if calculated): 14.2 cm. Maternal Adnexa: No significant abnormality. IMPRESSION: 1. Single, living intrauterine with estimated sonographic age of 25 weeks, 5 day(s). 2. No significant sonographic abnormality. Signer Name: Mechelle Kerr MD Signed: 11/17/2018 10:39 PM Workstation Name: [id number]
== END 2018-11-17 21:30 | disposition home or self-care (01) ==
LOC: ED 17:19 → TRG 17:19 → EDSTATUS 20:32 → ED 21:06 → TRG 21:30
DX: S50.861A Insect bite (nonvenomous) of right forearm, initial encounter (principal); L03.113 Cellulitis of right upper limb; E11.9 Type 2 diabetes mellitus without complications; J45.909 Unspecified asthma, uncomplicated; W57.XXXA Bitten or stung by nonvenomous insect and other nonvenomous arthropods, initial encounter; Y93.89 Activity, other specified; Y92.89 Other specified places as the place of occurrence of the external cause; Y99.8 Other external cause status
CPT/HCPCS: 36415; 76816; 82962; 85027; 99284; J7120

== ENCOUNTER 2020-01-14 18:38 | Emergency (ER) | payer MEDICAID ==
[2020-01-14 20:38] VITALS: BP 129/83
--- NOTE | 2020-01-14 21:05 | Emergency Department Report ---
- General Chief complaint: Skin/Abscess/Foreign Body Stated complaint: HEADACHES/NOSE/CHILLS Time Seen by Provider: 01/14/20 21:00 Source: patient Mode of arrival: Ambulatory Limitations: No Limitations - History of Present Illness Initial comments: Patient is a 34-year-old female presents emergency room with complaints of a possible infection to the right naris that began a few days ago. She states that 4 days ago which she popped a pimple that was present inside the nostril. She states since then she has had nostril swelling, drainage, pain. She denies any fever, she states that she is still able to smell and breathe through the nostril. She denies any past medical history. No allergies to medications. - Related Data Home Medications Medication Instructions Recorded Confirmed Last Taken Insulin NPH Human Isophane 10 units SUB-Q QPM 05/17/17 06/21/17 06/16/17 [Humulin N] Insulin NPH Human Isophane 42 units SUB-Q QAMDIAB 05/17/17 06/21/17 06/16/17 [Humulin N] Insulin Regular, Human [Humulin R] 16 units SUB-Q QAMDIAB 05/17/17 06/21/17 06/16/17 Insulin Regular, Human [Humulin R] 26 units SUB-Q QPM 05/17/17 06/21/17 06/16/17 Pnv No.95/Ferrous Fum/Folic AC 1 tab PO QDAY 05/17/17 06/21/17 06/16/17 [ Vitamins Tablet] Previous Rx's Medication Instructions Recorded Last Taken Type Magnesium Citrate 200 mg PO BID #120 tablet 05/19/17 06/16/17 Rx Ibuprofen [Motrin 600 MG tab] 600 mg PO Q6H PRN #30 tablet 06/23/17 Unknown Rx Acetaminophen/Codeine [Tylenol 1 tab PO Q6H PRN #10 tab 08/20/17 Unknown Rx /Codeine # 3 tab] Docusate Sodium [Stool Softener] 100 mg PO BID PRN #1 bottle 08/20/17 Unknown Rx Hydrocortisone [Anusol-Hc] 1 applicatio RC TID PRN #1 08/20/17 Unknown Rx cream..g. Ibuprofen [Motrin] 800 mg PO Q8HR PRN #25 tablet 08/20/17 Unknown Rx Acetaminophen [Acetaminophen TAB] 650 mg PO Q6HR PRN #30 tablet 09/14/18 Unknown Rx Ondansetron [Zofran Odt] 4 mg PO Q8HR PRN #20 tab.rapdis 09/14/18 Unknown Rx Clindamycin [Clindamycin CAP] 450 mg PO TID 7 Days #63 capsule 11/17/18 Unknown Rx Mupirocin [Bactroban 2% OINT] 1 applic TP TID #1 tube 01/14/20 Unknown Rx cephALEXin [Keflex] 500 mg PO QID 7 Days #28 cap 01/14/20 Unknown Rx Allergies Allergy/AdvReac Type Severity Reaction Status Date / Time No Known Allergies Allergy Verified 08/20/17 04:58 Abscess Boil HPI - HPI Chief Complaint: Skin/Abscess/Foreign Body Stated Complaint: HEADACHES/NOSE/CHILLS Time Seen by Provider: 01/14/20 21:00 Home Medications: Home Medications Medication Instructions Recorded Confirmed Last Taken Insulin NPH Human Isophane 10 units SUB-Q QPM 05/17/17 06/21/17 06/16/17 [Humulin N] Insulin NPH Human Isophane 42 units SUB-Q QAMDIAB 05/17/17 06/21/17 06/16/17 [Humulin N] Insulin Regular, Human [Humulin R] 16 units SUB-Q QAMDIAB 05/17/17 06/21/17 06/16/17 Insulin Regular, Human [Humulin R] 26 units SUB-Q QPM 05/17/17 06/21/17 06/16/17 Pnv No.95/Ferrous Fum/Folic AC 1 tab PO QDAY 05/17/17 06/21/17 06/16/17 [ Vitamins Tablet] Previous Rx's Medication Instructions Recorded Last Taken Type Magnesium Citrate 200 mg PO BID #120 tablet 05/19/17 06/16/17 Rx Ibuprofen [Motrin 600 MG tab] 600 mg PO Q6H PRN #30 tablet 06/23/17 Unknown Rx Acetaminophen/Codeine [Tylenol 1 tab PO Q6H PRN #10 tab 08/20/17 Unknown Rx /Codeine # 3 tab] Docusate Sodium [Stool Softener] 100 mg PO BID PRN #1 bottle 08/20/17 Unknown Rx Hydrocortisone [Anusol-Hc] 1 applicatio RC TID PRN #1 07/07/18 Unknown Rx cream..g. Ibuprofen [Motrin] 800 mg PO Q8HR PRN #25 tablet 08/20/17 Unknown Rx Acetaminophen [Acetaminophen TAB] 650 mg PO Q6HR PRN #30 tablet 09/14/18 Unknown Rx Ondansetron [Zofran Odt] 4 mg PO Q8HR PRN #20 tab.rapdis 09/14/18 Unknown Rx Clindamycin [Clindamycin CAP] 450 mg PO TID 7 Days #63 capsule 11/17/18 Unknown Rx Mupirocin [Bactroban 2% OINT] 1 applic TP TID #1 tube 01/14/20 Unknown Rx cephALEXin [Keflex] 500 mg PO QID 7 Days #28 cap 01/14/20 Unknown Rx Allergies/Adverse Reactions: Allergies Allergy/AdvReac Type Severity Reaction Status Date / Time No Known Allergies Allergy Verified 08/20/17 04:58 ED Review of Systems ROS: Stated complaint: HEADACHES/NOSE/CHILLS Other details as noted in HPI Comment: All other systems reviewed and negative ED Past Medical Hx - Past Medical History Previous Medical History?: Yes Hx Hypertension: Yes Hx Congestive Heart Failure: No Hx Diabetes: Yes (GDM) Hx Deep Vein Thrombosis: No Hx Renal Disease: No Hx Sickle Cell Disease: No Hx Seizures: No Hx Asthma: Yes (aubulerol inhaler prn (last attack couple years ago)) Hx COPD: No Hx HIV: No - Surgical History Past Surgical History?: Yes Additional Surgical History: LEFT KNEE SURGERY, Miscarriage - Social History Smoking Status: Never Smoker - Medications Home Medications: Home Medications Medication Instructions Recorded Confirmed Last Taken Type Insulin NPH Human Isophane 10 units SUB-Q QPM 05/17/17 06/21/17 06/16/17 History [Humulin N] Insulin NPH Human Isophane 42 units SUB-Q QAMDIAB 05/17/17 06/21/17 06/16/17 History [Humulin N] Insulin Regular, Human [Humulin R] 16 units SUB-Q QAMDIAB 05/17/17 06/21/17 06/16/17 History Insulin Regular, Human [Humulin R] 26 units SUB-Q QPM 05/17/17 06/21/17 06/16/17 History Pnv No.95/Ferrous Fum/Folic AC 1 tab PO QDAY 05/17/17 06/21/17 06/16/17 History [ Vitamins Tablet] Magnesium Citrate 200 mg PO BID #120 tablet 05/19/17 06/21/17 06/16/17 Rx Ibuprofen [Motrin 600 MG tab] 600 mg PO Q6H PRN #30 tablet 06/23/17 Unknown Rx Acetaminophen/Codeine [Tylenol 1 tab PO Q6H PRN #10 tab 08/20/17 Unknown Rx /Codeine # 3 tab] Docusate Sodium [Stool Softener] 100 mg PO BID PRN #1 bottle 08/20/17 Unknown Rx Hydrocortisone [Anusol-Hc] 1 applicatio RC TID PRN #1 08/20/17 Unknown Rx cream..g. Ibuprofen [Motrin] 800 mg PO Q8HR PRN #25 tablet 08/20/17 Unknown Rx Acetaminophen [Acetaminophen TAB] 650 mg PO Q6HR PRN #30 tablet 09/14/18 Unknown Rx Ondansetron [Zofran Odt] 4 mg PO Q8HR PRN #20 tab.rapdis 09/14/18 Unknown Rx Clindamycin [Clindamycin CAP] 450 mg PO TID 7 Days #63 capsule 11/17/18 Unknown Rx Mupirocin [Bactroban 2% OINT] 1 applic TP TID #1 tube 01/14/20 Unknown Rx cephALEXin [Keflex] 500 mg PO QID 7 Days #28 cap 01/14/20 Unknown Rx ED Physical Exam - General Limitations: No Limitations General appearance: alert, in no apparent distress - Head Head exam: Present: atraumatic, normocephalic - Eye Eye exam: Present: normal appearance - ENT ENT exam: Present: mucous membranes moist, other (0.5 cm area of induration present inside the right naris, there is small area of drainage, no signficiant surrounding cellulitis, mild edema to the right nostril) - Respiratory Respiratory exam: Absent: respiratory distress, accessory muscle use - Neurological Exam Neurological exam: Present: alert, oriented X3 - Psychiatric Psychiatric exam: Present: normal affect, normal mood - Skin Skin exam: Present: warm, dry ED Course Vital Signs 01/14/20 20:33 Temperature 98.4 F Pulse Rate 102 H Respiratory 16 Rate Blood Pressure 129/83 O2 Sat by Pulse 96 Oximetry ED Medical Decision Making - Medical Decision Making Patient is a 34-year-old female presents emergency room with complaints of a possible infection to the right naris that began a few days ago. She states that 4 days ago which she popped a pimple that was present inside the nostril. She states since then she has had nostril swelling, drainage, pain. She denies any fever, she states that she is still able to smell and breathe through the nostril. She denies any past medical history. No allergies to medications. VSS. on exam:0.5 cm area of induration present inside the right naris, there is small area of drainage, no signficiant surrounding cellulitis, mild edema to the right nostril. Examination appears consistent with small area of cellulitis. Patient given prescription for Keflex and mupirocin ointment. Advised patient to have the area reexamined within the next 3 days. Advised patient Please use medication as prescribed. May wash with antibacterial soap and water twice a day. Wash your hands frequently. Please avoid trying to pop the area. Follow- up with a primary care doctor for reexamination. Return to emergency room for any new or worsening symptoms. Critical care attestation.: If time is entered above; I have spent that time in minutes in the direct care of this critically ill patient, excluding procedure time. ED Disposition Clinical Impression: Cellulitis Qualifiers: Site of cellulitis: face Qualified Code(s): L03.211 - Cellulitis of face Disposition: DC-01 TO HOME OR SELFCARE Is pt being admited?: No Does the pt Need Aspirin: No Condition: Stable Instructions: Cellulitis, Adult Additional Instructions: Please use medication as prescribed. May wash with antibacterial soap and water twice a day. Wash your hands frequently. Please avoid trying to pop the area. Follow-up with a primary care doctor for reexamination. Return to emergency room for any new or worsening symptoms. Prescriptions: Mupirocin [Bactroban 2% OINT] 1 applic TP TID #1 tube cephALEXin [Keflex] 500 mg PO QID 7 Days #28 cap Referrals: VICKI NOVA MD [Staff Physician] - 2-3 Days [facility] [Provider Group] - 2-3 Days Time of Disposition: 21:04 Print Language: SERBIAN
== END 2020-01-14 21:28 | disposition home or self-care (01) ==
LOC: ED 18:38
DX: J34.0 Abscess, furuncle and carbuncle of nose (principal); I10 Essential (primary) hypertension; E11.9 Type 2 diabetes mellitus without complications; J45.909 Unspecified asthma, uncomplicated; Z98.890 Other specified postprocedural states; Z79.1 Long term (current) use of non-steroidal anti-inflammatories (NSAID); Z79.4 Long term (current) use of insulin; Z79.899 Other long term (current) drug therapy
CPT/HCPCS: 99281

== ENCOUNTER 2020-03-31 19:52 | Emergency (ER) | payer MEDICAID ==
[2020-03-31 20:18] LABS: Basophils % (Auto) 0.2 % (0.0-1.8); Eosinophils # (Auto) 0.1 K/mm3 (0.0-0.4); Eosinophils % (Auto) 1.7 % (0.0-4.3); Hematocrit 42.3 % (30.3-42.9); Hemoglobin 14.2 gm/dl (10.1-14.3); Lymphocytes # (Auto) 3.1 K/mm3 (1.2-5.4); Lymphocytes % (Auto) 39.7 % (13.4-35.0); Mean Corpuscular HGB Conc 34 % (30-34); Mean Corpuscular Volume 91 fl (79-97); Monocytes # (Auto) 0.5 K/mm3 (0.0-0.8); Monocytes % (Auto) 6.8 % (0.0-7.3); Platelet Count 276 K/mm3 (140-440); Red Blood Count 4.64 M/mm3 (3.65-5.03); Red Cell Distribution Width 13.5 % (13.2-15.2)
--- NOTE | 2020-03-31 20:35 | Emergency Department Report ---
ED General Adult HPI - General Chief complaint: Abdominal Pain Stated complaint: BACK PAIN/ABD CRAMPING/NO CYCLE/NOT PREG Time Seen by Provider: 03/31/20 20:02 Source: patient Mode of arrival: Ambulatory Limitations: No Limitations - History of Present Illness Initial comments: 34 yo AA F pt presents with complaints of right lower abdominal pain x 2 days and intermittent nausea and dizziness x 1 month. She reports she has hx of a tubal ligation, however believes there is a possibility of . She rates her current pain as a 7/10 in severity and describes it as sharp and achy. She denies any urinary sxs, vaginal discharge, vomiting, or stools changes. She starts her menstrual cycle is 10 days late. No dyspareunia per pt, melena/hematochezia, fever/chills/sweats, or CP/SOB. - Related Data Home Medications Medication Instructions Recorded Confirmed Last Taken Insulin NPH Human Isophane 10 units SUB-Q QPM 05/17/17 06/21/17 06/16/17 [Humulin N] Insulin NPH Human Isophane 42 units SUB-Q QAMDIAB 05/17/17 06/21/17 06/16/17 [Humulin N] Insulin Regular, Human [Humulin R] 16 units SUB-Q QAMDIAB 05/17/17 06/21/17 06/16/17 Insulin Regular, Human [Humulin R] 26 units SUB-Q QPM 05/17/17 06/21/17 06/16/17 Pnv No.95/Ferrous Fum/Folic AC 1 tab PO QDAY 05/17/17 06/21/17 06/16/17 [ Vitamins Tablet] Previous Rx's Medication Instructions Recorded Last Taken Type Magnesium Citrate 200 mg PO BID #120 tablet 05/19/17 06/16/17 Rx Ibuprofen [Motrin 600 MG tab] 600 mg PO Q6H PRN #30 tablet 06/23/17 Unknown Rx Acetaminophen/Codeine [Tylenol 1 tab PO Q6H PRN #10 tab 08/20/17 Unknown Rx /Codeine # 3 tab] Docusate Sodium [Stool Softener] 100 mg PO BID PRN #1 bottle 08/20/17 Unknown Rx Hydrocortisone [Anusol-Hc] 1 applicatio RC TID PRN #1 08/20/17 Unknown Rx cream..g. Ibuprofen [Motrin] 800 mg PO Q8HR PRN #25 tablet 08/20/17 Unknown Rx Acetaminophen [Acetaminophen TAB] 650 mg PO Q6HR PRN #30 tablet 09/14/18 Unknown Rx Ondansetron [Zofran Odt] 4 mg PO Q8HR PRN #20 tab.rapdis 09/14/18 Unknown Rx Clindamycin [Clindamycin CAP] 450 mg PO TID 7 Days #63 capsule 11/17/18 Unknown Rx Mupirocin [Bactroban 2% OINT] 1 applic TP TID #1 tube 01/14/20 Unknown Rx cephALEXin [Keflex] 500 mg PO QID 7 Days #28 cap 01/14/20 Unknown Rx Meloxicam [Mobic] 15 mg PO QDAY #15 tablet 04/01/20 Unknown Rx metFORMIN [Glucophage] 500 mg PO BID #30 tablet 04/01/20 Unknown Rx methocarbamoL [Methocarbamol] 750 - 1,500 mg PO TID PRN #30 04/01/20 Unknown Rx tablet Allergies Allergy/AdvReac Type Severity Reaction Status Date / Time No Known Allergies Allergy Verified 08/20/17 04:58 ED Review of Systems ROS: Stated complaint: BACK PAIN/ABD CRAMPING/NO CYCLE/NOT PREG Other details as noted in HPI Constitutional: denies: chills, diaphoresis, fever, malaise, weakness Respiratory: denies: cough, shortness of breath Cardiovascular: denies: chest pain Endocrine: denies: excessive sweating Gastrointestinal: abdominal pain, nausea. denies: vomiting, diarrhea, constipation, hematemesis, melena, hematochezia Genitourinary: denies: urgency, dysuria, frequency, hematuria, discharge, dyspareunia Musculoskeletal: denies: back pain Skin: denies: change in color Neurological: denies: headache ED Past Medical Hx - Past Medical History Previous Medical History?: Yes Hx Hypertension: Yes (gestational) Hx Congestive Heart Failure: No Hx Diabetes: Yes (gestational) Hx Deep Vein Thrombosis: No Hx Renal Disease: No Hx Sickle Cell Disease: No Hx Seizures: No Hx Asthma: Yes (aubulerol inhaler prn (last attack couple years ago)) Hx COPD: No Hx HIV: No - Surgical History Past Surgical History?: Yes Additional Surgical History: LEFT KNEE SURGERY, Miscarriage. tubal ligation 03/05 - Social History Smoking Status: Current Every Day Smoker Substance Use Type: Alcohol - Medications Home Medications: Home Medications Medication Instructions Recorded Confirmed Last Taken Type Insulin NPH Human Isophane 10 units SUB-Q QPM 05/17/17 06/21/17 06/16/17 History [Humulin N] Insulin NPH Human Isophane 42 units SUB-Q QAMDIAB 05/17/17 06/21/17 06/16/17 History [Humulin N] Insulin Regular, Human [Humulin R] 16 units SUB-Q QAMDIAB 05/17/17 06/21/17 06/16/17 History Insulin Regular, Human [Humulin R] 26 units SUB-Q QPM 05/17/17 06/21/17 06/16/17 History Pnv No.95/Ferrous Fum/Folic AC 1 tab PO QDAY 05/17/17 06/21/17 06/16/17 History [ Vitamins Tablet] Magnesium Citrate 200 mg PO BID #120 tablet 05/19/17 06/21/17 06/16/17 Rx Ibuprofen [Motrin 600 MG tab] 600 mg PO Q6H PRN #30 tablet 06/23/17 Unknown Rx Acetaminophen/Codeine [Tylenol 1 tab PO Q6H PRN #10 tab 08/20/17 Unknown Rx /Codeine # 3 tab] Docusate Sodium [Stool Softener] 100 mg PO BID PRN #1 bottle 08/20/17 Unknown Rx Hydrocortisone [Anusol-Hc] 1 applicatio RC TID PRN #1 08/20/17 Unknown Rx cream..g. Ibuprofen [Motrin] 800 mg PO Q8HR PRN #25 tablet 08/20/17 Unknown Rx Acetaminophen [Acetaminophen TAB] 650 mg PO Q6HR PRN #30 tablet 09/14/18 Unknown Rx Ondansetron [Zofran Odt] 4 mg PO Q8HR PRN #20 tab.rapdis 09/14/18 Unknown Rx Clindamycin [Clindamycin CAP] 450 mg PO TID 7 Days #63 capsule 11/17/18 Unknown Rx Mupirocin [Bactroban 2% OINT] 1 applic TP TID #1 tube 01/14/20 Unknown Rx cephALEXin [Keflex] 500 mg PO QID 7 Days #28 cap 01/14/20 Unknown Rx Meloxicam [Mobic] 15 mg PO QDAY #15 tablet 04/01/20 Unknown Rx metFORMIN [Glucophage] 500 mg PO BID #30 tablet 04/01/20 Unknown Rx methocarbamoL [Methocarbamol] 750 - 1,500 mg PO TID PRN #30 04/01/20 Unknown Rx tablet ED Physical Exam - General Limitations: No Limitations General appearance: alert, in no apparent distress - Head Head exam: Present: atraumatic - Eye Eye exam: Present: normal appearance. Absent: scleral icterus - ENT ENT exam: Present: mucous membranes moist - Neck Neck exam: Present: normal inspection - Respiratory Respiratory exam: Present: normal lung sounds bilaterally. Absent: respiratory distress - Cardiovascular Cardiovascular Exam: Present: regular rate - GI/Abdominal GI/Abdominal exam: Present: soft, tenderness (RLQ), normal bowel sounds. Absent: distended, rigid - Extremities Exam Extremities exam: Present: full ROM - Back Exam Back exam: Present: CVA tenderness (R) - Neurological Exam Neurological exam: Present: alert, oriented X3 - Psychiatric Psychiatric exam: Present: normal affect - Skin Skin exam: Present: warm, dry, intact, normal color. Absent: rash, cyanosis, diaphoretic, erythema ED Course Vital Signs 03/31/20 03/31/20 04/01/20 19:58 23:37 00:07 Temperature 98.5 F Pulse Rate 97 H Respiratory 18 18 18 Rate Blood Pressure 132/71 Blood Pressure [Left] O2 Sat by Pulse 100 Oximetry 04/01/20 04/01/20 04/01/20 00:08 00:38 02:10 Temperature Pulse Rate 80 Respiratory 18 18 18 Rate Blood Pressure Blood Pressure 133/91 [Left] O2 Sat by Pulse 100 Oximetry ED Medical Decision Making - Lab Data Result diagrams: 03/31/20 20:09 03/31/20 20:09 Lab Results 03/31/20 03/31/20 03/31/20 Range/Units 20:09 20:09 20:09 WBC 7.9 (4.5-11.0) K/mm3 RBC 4.64 (3.65-5.03) M/mm3 Hgb 14.2 (10.1-14.3) gm/dl Hct 42.3 (30.3-42.9) % MCV 91 (79-97) fl MCH 31 (28-32) pg MCHC 34 (30-34) % RDW 13.5 (13.2-15.2) % Plt Count 276 (140-440) K/mm3 Lymph % (Auto) 39.7 H (13.4-35.0) % Door % (Auto) 6.8 (0.0-7.3) % Eos % (Auto) 1.7 (0.0-4.3) % Baso % (Auto) 0.2 (0.0-1.8) % Lymph # (Auto) 3.1 (1.2-5.4) K/mm3 Door # (Auto) 0.5 (0.0-0.8) K/mm3 Eos # (Auto) 0.1 (0.0-0.4) K/mm3 Baso # (Auto) 0.0 (0.0-0.1) K/mm3 Seg Neutrophils % 51.6 (40.0-70.0) % Seg Neutrophils # 4.1 (1.8-7.7) K/mm3 Sodium 131 L (137-145) mmol/L Potassium 3.8 (3.6-5.0) mmol/L Chloride 95.6 L (98-107) mmol/L Carbon Dioxide 22 (22-30) mmol/L Anion Gap 17 mmol/L BUN 6 L (7-17) mg/dL Creatinine 0.8 (0.6-1.2) mg/dL Estimated GFR > 60 ml/min BUN/Creatinine Ratio 8 % Glucose 485 H (65-100) mg/dL Calcium 8.9 (8.4-10.2) mg/dL Total Bilirubin 0.20 (0.1-1.2) mg/dL AST 14 (5-40) units/L ALT 13 (7-56) units/L Alkaline Phosphatase 129 (35-129) units/L Total Protein 7.0 (6.3-8.2) g/dL Albumin 4.0 (3.9-5) g/dL Albumin/Globulin Ratio 1.3 % Lipase 37 (13-60) units/L HCG, Qual Negative (Negative) Urine Color (Yellow) Urine Turbidity (Clear) Urine pH (5.0-7.0) Ur Specific [place] (1.003-1.030) Urine Protein (Negative) mg/dL Urine Glucose (UA) (Negative) mg/dL Urine Ketones (Negative) mg/dL Urine Blood (Negative) Urine Nitrite (Negative) Urine Bilirubin (Negative) Urine Urobilinogen (<2.0) mg/dL Ur Leukocyte Esterase (Negative) Urine WBC (Auto) (0.0-6.0) /HPF Urine RBC (Auto) (0.0-6.0) /HPF U Epithel Cells (Auto) (0-13.0) /HPF 03/31/20 Range/Units 21:13 WBC (4.5-11.0) K/mm3 RBC (3.65-5.03) M/mm3 Hgb (10.1-14.3) gm/dl Hct (30.3-42.9) % MCV (79-97) fl MCH (28-32) pg MCHC (30-34) % RDW (13.2-15.2) % Plt Count (140-440) K/mm3 Lymph % (Auto) (13.4-35.0) % Door % (Auto) (0.0-7.3) % Eos % (Auto) (0.0-4.3) % Baso % (Auto) (0.0-1.8) % Lymph # (Auto) (1.2-5.4) K/mm3 Door # (Auto) (0.0-0.8) K/mm3 Eos # (Auto) (0.0-0.4) K/mm3 Baso # (Auto) (0.0-0.1) K/mm3 Seg Neutrophils % (40.0-70.0) % Seg Neutrophils # (1.8-7.7) K/mm3 Sodium (137-145) mmol/L Potassium (3.6-5.0) mmol/L Chloride (98-107) mmol/L Carbon Dioxide (22-30) mmol/L Anion Gap mmol/L BUN (7-17) mg/dL Creatinine (0.6-1.2) mg/dL Estimated GFR ml/min BUN/Creatinine Ratio % Glucose (65-100) mg/dL Calcium (8.4-10.2) mg/dL Total Bilirubin (0.1-1.2) mg/dL AST (5-40) units/L ALT (7-56) units/L Alkaline Phosphatase (35-129) units/L Total Protein (6.3-8.2) g/dL Albumin (3.9-5) g/dL Albumin/Globulin Ratio % Lipase (13-60) units/L HCG, Qual (Negative) Urine Color Yellow (Yellow) Urine Turbidity Clear (Clear) Urine pH 6.0 (5.0-7.0) Ur Specific [place] 1.033 H (1.003-1.030) Urine Protein <15 mg/dl (Negative) mg/dL Urine Glucose (UA) >=500 (Negative) mg/dL Urine Ketones Neg (Negative) mg/dL Urine Blood Neg (Negative) Urine Nitrite Neg (Negative) Urine Bilirubin Neg (Negative) Urine Urobilinogen < 2.0 (<2.0) mg/dL Ur Leukocyte Esterase Neg (Negative) Urine WBC (Auto) 1.0 (0.0-6.0) /HPF Urine RBC (Auto) < 1.0 (0.0-6.0) /HPF U Epithel Cells (Auto) 1.0 (0-13.0) /HPF - Radiology Data Radiology results: report reviewed CT ABDOMEN AND PELVIS WITH CONTRAST INDICATION / CLINICAL INFORMATION: Acute R.L.Q. / Right sided pain, +Right C.V.A. tenderness. TECHNIQUE: Axial CT images were obtained through the abdomen and pelvis following the administration of intravenous contrast. All CT scans at this location are performed using CT dose reduction for ALARA by means of automated exposure control. COMPARISON: None available. FINDINGS: LOWER CHEST: No significant abnormality. LIVER: No significant abnormality. GALLBLADDER: The gallbladder is contracted without significant abnormality. PANCREAS: No significant abnormality. SPLEEN: No significant abnormality. ADRENALS: No significant abnormality. KIDNEYS / URETERS: No significant abnormality. No nephroureterolithiasis or obstructive uropathy. No evidence of pyelonephritis. URINARY BLADDER: No significant abnormality. REPRODUCTIVE ORGANS: Bilateral tubal ligation clips are seen. STOMACH / SMALL BOWEL: No significant abnormality. COLON: No significant abnormality. APPENDIX: No significant abnormality. PERITONEUM: No free fluid. No free air. No fluid collection. LYMPH NODES: No significant adenopathy. AORTA / ARTERIES: No significant abnormality. IVC / VEINS: No significant abnormality. SKELETAL SYSTEM: Osteitis pubis is seen. ADDITIONAL FINDINGS: None. IMPRESSION: 1. No acute abdominopelvic abnormality. 2. Osteitis pubis. - Medical Decision Making 34 yo AA F pt presents with complaints of right lower abdominal pain x 2 days and intermittent nausea and dizziness x 1 month. She reports she has hx of a tubal ligation, however believes there is a possibility of . She rates her current pain as a 7/10 in severity and describes it as sharp and achy. She denies any urinary sxs, vaginal discharge, vomiting, or stools changes. She starts her menstrual cycle is 10 days late. No dyspareunia per pt, melena/hematochezia, fever/chills/sweats, or CP/SOB. CT abdomen is negative for any acute abnormalities. Pain resolved with medica tions given here in ED. Blood glucose noted to be 489-patient states history of gestational diabetes, however denies any diabetes thereafter. She has not had her glucose checked in 1 year per patient. Patient given 2 L of saline and 10 units of insulin IV. Blood glucose now 113. Discussed diabetic diet and importance of follow-up with primary care doctor within 2 to 3 days. Will start patient on Metformin. Also discussed signs and symptoms that should prompt immediate return to the emergency department in detail with patient who verbalized understanding. She is well-appearing, her vitals are normal, she is stable for discharge home. Critical care attestation.: If time is entered above; I have spent that time in minutes in the direct care of this critically ill patient, excluding procedure time. ED Disposition Clinical Impression: Abdominal pain, Diabetes mellitus, new onset, Back muscle spasm Disposition: - TO HOME OR SELFCARE Is pt being admited?: No Condition: Stable Instructions: Type 2 Diabetes Mellitus, Diagnosis, Adult, Muscle Cramps and Spasms, Abdominal Pain, Adult, [id number], Metformin tablets, Diabetes Mellitus Type 2 in Adults (ED), Abdominal Pain (ED) Additional Instructions: Please follow-up with your primary care doctor within 2 to 3 days for further evaluation and follow-up of your new diagnosis of diabetes Prescriptions: metFORMIN [Glucophage] 500 mg PO BID #30 tablet methocarbamoL [Methocarbamol] 750 - 1,500 mg PO TID PRN #30 tablet PRN Reason: Muscle spasm/tightness Meloxicam [Mobic] 15 mg PO QDAY #15 tablet Referrals: PRIMARY CARE, [Primary Care Provider] - 3-5 Days
[2020-03-31 20:38] LABS: Alanine Aminotransferase 13 units/L (7-56); BUN/Creatinine Ratio 8; Blood Urea Nitrogen 6 mg/dL (7-17); Calcium 8.9 mg/dL (8.4-10.2); Hemolysis Index 8
[2020-03-31 21:51] LABS: Bilirubin,Urine NEG (Negative); Blood,Urine NEG (Negative); Color,Urine Yellow (Yellow); Protein,Urine <15 mg/dL mg/dL (Negative); RBC,Urine < 1.0 /HPF (0.0-6.0); Urobilinogen,Urine < 2.0 mg/dL (<2.0)
--- NOTE | 2020-03-31 22:27 | Cat Scan Report ---
CT ABDOMEN AND PELVIS WITH CONTRAST INDICATION / CLINICAL INFORMATION: Acute R.L.Q. / Right sided pain, +Right C.V.A. tenderness. TECHNIQUE: Axial CT images were obtained through the abdomen and pelvis following the administration of intraven ous contrast. All CT scans at this location are performed using CT dose reduction for ALARA by means of automated exposure control. COMPARISON: None available. FINDINGS: LOWER CHEST: No significant abnormality. LIVER: No significant abnormality. GALLBLADDER: The gallbladder is contracted without significant abnormality. PANCREAS: No significant abnormality. SPLEEN: No significant abnormality. ADRENALS: No significant abnormality. KIDNEYS / URETERS: No significant abnormality. No nephroureterolithiasis or obstructive uropathy. No evidence of pyelonephritis. URINARY BLADDER: No significant abnormality. REPRODUCTIVE ORGANS: Bilateral tubal ligation clips are seen. STOMACH / SMALL BOWEL: No significant abnormality. COLON: No significant abnormality. APPENDIX: No significant abnormality. PERITONEUM: No free fluid. No free air. No fluid collection. LYMPH NODES: No significant adenopathy. AORTA / ARTERIES: No significant abnormality. IVC / VEINS: No significant abnormality. SKELETAL SYSTEM: Osteitis pubis is seen. ADDITIONAL FINDINGS: None. IMPRESSION: 1. No acute abdominopelvic abnormality. 2. Osteitis pubis. Signer Name: Rigoberto Jimenez MD Signed: 03/31/2020 10:23 PM Workstation Name: [id number]
[2020-03-31] MEDS ORDERED: INSULIN REGULAR, HUMAN 100 UNITS/1 ML IV ONE (22:46)
[2020-03-31] MEDS ORDERED: SODIUM CHLORIDE 0.9% 1000 ML 1,000 ML IV ONE ×2 (22:46)
[2020-03-31] MEDS ORDERED: KETOROLAC 30 MG/1 ML INJ IV ONE (23:31)
[2020-03-31] MEDS ORDERED: MORPHINE 4 MG/1 ML INJ IV ONE (23:44)
[2020-04-01 02:16] VITALS: BP 133/91
== END 2020-04-01 02:10 | disposition home or self-care (01) ==
LOC: ED 19:52
DX: R10.9 Unspecified abdominal pain (principal); E11.9 Type 2 diabetes mellitus without complications; M62.830 Muscle spasm of back; I10 Essential (primary) hypertension; J45.909 Unspecified asthma, uncomplicated; F17.200 Nicotine dependence, unspecified, uncomplicated; Z98.51 Tubal ligation status; Z98.890 Other specified postprocedural states; Z79.4 Long term (current) use of insulin; Z79.899 Other long term (current) drug therapy
CPT/HCPCS: 36415; 74177; 80053; 81001; 82962; 83690; 84703; 85025; 96361; 96374; 96375; 99284; J1885; J2270; J7030; Q9967; J1815

== ENCOUNTER 2020-09-18 23:29 | Emergency (ER) | payer MEDICAID | END 2020-09-19 00:30 | disposition left against medical advice (07) | LOC: ED 23:29 | DX: R10.9 Unspecified abdominal pain (principal); Z53.21 Procedure and treatment not carried out due to patient leaving prior to being seen by health care provider ==